=== PATIENT | male | born 2000 | race Caucasian/White ===

== ENCOUNTER 2024-07-26 10:33 | Outpatient (AMB) | payer OTHER, SELFPAY ==
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
[2024-07-26 10:39] VITALS: BP 100/60; PULSE 57; TEMP 36.6; O2SAT 97; BMI 19.9
--- OUTSIDE RECORDS SUMMARY | 2024-07-26 12:26 | XMS_ITS | Clinical Summary ---
Author Organization [facility] [employer] [facility] lin Address [address] [place] [address] Care Team Providers Care Magistrate Name Role Phone No, Pcp TOOL PROCUREMENT COORDINATOR Primary Care Provider Unavailabl e Allergies No known active allergies Medications VYVANSE 40 mg capsule 0 10/06/2014 Active QUEtiapine (SEROquel) 100 MG tablet 0 10/06/2014 Active sertraline (ZOLOFT) 50 MG tablet 0 11/03/2014 Active divalproex (DEPAKOTE) 250 MG EC tablet 0 09/08/2014 Active Social History Tobacco Use Types Packs/Day Years Used Date Smoking Tobacco: Passive Smo ke Exposure - Never Smoker Sex and Gender Information Value Date Recorded Sex Assigned at Not on file Legal Sex Male 3:32 PM EDT Gender Identity Not on file Sexual Orientation Not on file Last Filed Vital Signs Vital Sign Reading Time Taken Comments Blood Pressure 108/62 11/08/2014 3:44 PM EDT Pulse 77 11/08/2014 3:44 PM EDT Temperature 37.1 ??C (98.8 ??F) 11/08/2014 3:44 PM ED T Respiratory Rate 14 11/08/2014 3:44 PM EDT Oxygen Saturation 97% 11/08/2014 3:44 PM EDT Inhaled Oxygen Concentration - - Weight 38.9 kg (85 lb 12.8 oz) 11/08/2014 3:44 P M EDT Height 149.9 cm (4' 11 ) 11/08/2014 3:44 PM EDT Body Mass Index 17.33 11/08/2014 3:44 PM EDT Plan of Treatment Health Maintenance Due Date Last Done Comments Depression: Screening Annual ly using PHQ-2/9 in Adults 18 yrs or above (or HM Modifier)([facility]) 02/08/2018 Hepatitis C Virus Infection in Adolescents and Adults: Screening (or Modifier) ([facility]) 02/08/2018 SDOH Screening Reminder: Karie eden for all adults ([facility]) 02/08/2018 Tobacco Smoking Cessation: i n Adults excluding Women: Behavioral and Pharmacotherapy Interventions ([facility]) 02/08/2018 DTaP/Tdap/Td Vaccines ([facility]) (1 - Tdap) 02/08/2019 Lipid Screening: Once for Me n aged 20 to 35 yrs ([facility]) 2020 Flu Vaccination: Yearly for ages 18mos through 64 years (or Modifier)([facility]) 11/20/2023 COVID-19 Vaccine Screening: Initial Series and Booster Status ([facility]) ( - 2023- season) 2023 Zoster/Shingles Vaccine Seri es Screening: Adults aged 18+ yrs (or HM Modifiers)([facility]) (1 of 2) 02/08/2050 Pneumococcal Vaccination Scr eening: Pts 0-19 & 19-49 yrs of age ([facility]) Aged Out No longer eligible based on patient's age to complete this topic Medical Devices Not on file Care Teams Magistrate Relationship Specialty Start Date End Date No, Pcp, TOOL PROCUREMENT COORDINATOR N/A Do not use PCP - General 11/08/14
--- OUTSIDE RECORDS SUMMARY | 2024-07-26 12:26 | XMS_ITS | Continuity of Care Document ---
Author Organization [facility] Address [address] [place] [address] Phone Care Team Providers Care Boiler Riveter Name Role Phone No Information Unavailable Unavailable Advance Directives Directive Yes / No Effective Date File Name No Information Encounters Encounter Description Practice Location Reason(s) For Visit Diagnoses Date Provider Providers Copied on Encounter [facility], [address], [place], [place], [id number], [place] tel:[phone] No Information No Information Family History Family Member Type Diagnosis Age At Onset No Information Payers Payer name Insurance type Covered alliance party ID Authoriza tion(s) No Information Social History Type Description Quantity Date Captured Comments Sex Male Smoking Status No Information Chief Complaint And Reason For Visit No Information Reason For Referral Reason For Referral No Information History Of Present Illness Encounter Date Complaint History Of Prese nt Illness No Information Functional Status Date Functional Assessmen t No Information Instructions Date Instruction Additional Infor mation No Information Assessments Type Assessment Date No Information Patient Care Teams Name Effective Dates (start - stop) Status Members No Information
== END 2024-07-26 11:31 | disposition home or self-care (01) ==
LOC: HO.HMCH 10:33
DX: F90.9 Attention-deficit hyperactivity disorder, unspecified type (principal); R09.81 Nasal congestion; M54.41 Lumbago with sciatica, right side; H66.90 Otitis media, unspecified, unspecified ear

== ENCOUNTER → 2024-07-26 10:33 | Outpatient (BNVA) | payer OTHER, SELFPAY | DX: F90.9 Attention-deficit hyperactivity disorder, unspecified type (principal); R09.81 Nasal congestion; M54.41 Lumbago with sciatica, right side; H66.91 Otitis media, unspecified, right ear | CPT/HCPCS: 96127 ==

== ENCOUNTER 2024-07-30 08:42 | Outpatient (REF) | payer OTHER, SELFPAY ==
--- OUTSIDE RECORDS SUMMARY | 2024-07-30 10:14 | XMS_ITS | Clinical Summary ---
Author Organization [facility] [employer] & [facility] lin Address [address] [place] [address] Care Team Providers Care Floors Buffer Name Role Phone No, Pcp COLD PRESS LOADER Primary Care Provider Unavailabl e Allergies No [...] Adults 18 yrs or above (or HM Modifier)([facility]) 02/08/2018 Hepatitis C Virus Infection in Adolescents and Adults: Screening (or Modifier) ([facility]) 02/08/2018 SDOH Screening Reminder: Karie eden for all adults ([facility]) 02/08/2018 Tobacco Smoking Cessation: i n Adults excluding Women: Behavioral and Pharmacotherapy Interventions ([facility]) 02/08/2018 DTaP/Tdap/Td Vaccines ([facility]) (1 - Tdap) 02/08/2019 Lipid Screening: Once for Me n aged 20 to 35 yrs ([facility]) 2020 Flu Vaccination: Yearly for ages 18mos through 64 years (or Modifier)([facility]) 11/20/2023 COVID-19 Vaccine Screening: Initial Series and Booster Status ([facility]) ( - 2023- season) 2023 Zoster/Shingles Vaccine Seri es Screening: Adults aged 18+ yrs (or HM Modifiers)([facility]) (1 of 2) 02/08/2050 Pneumococcal Vaccination Scr eening: Pts 0-19 & 19-49 yrs of age ([facility]) Aged Out No longer eligible based on patient's age to complete this topic Medical Devices Not on file Care Teams Floors Buffer Relationship Specialty Start Date End Date No, Pcp, COLD PRESS LOADER N/A Do not use PCP - General 11/08/14
[2024-07-30 10:20] LABS: MANUAL DIFF FLAG NO
[2024-07-30 10:44] LABS: Basophils Absolute Auto 0.1 X10*3/uL (0.0-0.2); Basophils Percent Auto 1.1 % (0-2); Eosinophils Absolute Auto 0.2 X10*3/uL (0.0-0.4); Eosinophils Percent Auto 4.2 % (0-4); Hemoglobin 14.8 g/dl (14.0-18.0); Imm Gran Abs Auto 0.02 X10*3/uL (0.00-0.03); Imm Gran Pct Auto 0.4 % (0.0-0.4); Lymphocytes Absolute Auto 1.9 X10*3/uL (1.2-4.9); Lymphocytes Percent Auto 36.4 % (20-40); Mean Corpuscular HGB Conc 35.2 g/dl (31.0-36.0); Mean Corpuscular Hemoglobin 30.8 pg (27.0-33.0); Mean Corpuscular Volume 87.5 fL (80.0-98.0); Monocytes Absolute Auto 0.5 X10*3/uL (0.1-1.2); Monocytes Percent Auto 9.5 % (2-11); Neutrophils Absolute Auto 2.5 x10*3/uL (2.0-8.3); Neutrophils Percent Auto 48.4 % (45-73); Platelet Count 302 X10*3/uL (160-400); White Blood Count 5.3 X10*3/uL (4.8-10.8)
[2024-07-30 11:13] LABS: Appearance Urine Clear; Color Urine Yellow; Glucose Urine UA Negative (Negative); Leukocyte Esterase Urine Negative (Negative); Nitrite Urine Negative (Negative); PH 5.5 (5.0-9.0); Specific Gravity - Urine 1.025 (1.005-1.025); Urine Blood Negative (Negative); Urine Ketones Negative (Negative); Urine Protein Negative (Neg-Trace)
[2024-07-30 11:22] LABS: Alanine Aminotransferase 17 U/L (0-40); Albumin Level 4.8 g/dL (3.5-5.0); Alkaline Phosphatase 33 U/L (39-117); Anion Gap 12 (12-20); Aspartate Amino Transferase 23 U/L (5-37); Blood Urea Nitrogen 16 mg/dL (9-16); Calcium 10.1 mg/dL (8.4-10.2); Carbon Dioxide 28 mmol/L (22-29); Chloride 106 mmol/L (96-108); Cholesterol 185 mg/dL (<200); Estimated Glomerular Filt Rate > 60; Glucose Fasting 92 mg/dL (60-99); HDL Cholesterol 84 mg/dL (>40); LDL Cholesterol Calculated 93 mg/dL (<100); Potassium 4.6 mmol/L (3.3-5.1); Sodium 141 mmol/L (135-145); Total Protein 7.5 g/dL (6.5-8.0); Triglycerides 40 mg/dL (<150)
[2024-07-30 11:44] LABS: TSH reflex Free T4 1.03 uIU/mL (0.32-4.0); Vitamin D 25-OH Total 19.8 ng/mL (>30)
== END 2024-07-30 08:43 | disposition home or self-care (01) ==
LOC: HO.LAB 08:42
DX: Z00.00 Encounter for general adult medical examination without abnormal findings (principal)
CPT/HCPCS: 36415; 80053; 80061; 81003; 82306; 84443; 85025

== ENCOUNTER 2024-07-30 08:42 | Outpatient (AMB) | payer OTHER, SELFPAY ==
--- OUTSIDE RECORDS SUMMARY | 2024-07-30 08:50 | XMS_ITS | Clinical Summary ---
Author Organization [facility] [place] [facility] lin Address [address] [place] [address] Care Team Providers Care Furniture Mechanic Name Role Phone No, Pcp DIGITAL ADVERTISING ANALYST Primary Care Provider Unavailabl e Allergies No [...] Adults 18 yrs or above (or HM Modifier)([facility]) 02/08/2018 Hepatitis C Virus Infection in Adolescents and Adults: Screening (or Modifier) ([facility]) 02/08/2018 SDOH Screening Reminder: Karie eden for all adults ([facility]) 02/08/2018 Tobacco Smoking Cessation: i n Adults excluding Women: Behavioral and Pharmacotherapy Interventions ([facility]) 02/08/2018 DTaP/Tdap/Td Vaccines ([facility]) (1 - Tdap) 02/08/2019 Lipid Screening: Once for Me n aged 20 to 35 yrs ([facility]) 2020 Flu Vaccination: Yearly for ages 18mos through 64 years (or Modifier)([facility]) 11/20/2023 COVID-19 Vaccine Screening: Initial Series and Booster Status ([facility]) ( - 2023- season) 2023 Zoster/Shingles Vaccine Seri es Screening: Adults aged 18+ yrs (or HM Modifiers)([facility]) (1 of 2) 02/08/2050 Pneumococcal Vaccination Scr eening: Pts 0-19 & 19-49 yrs of age ([facility]) Aged Out No longer eligible based on patient's age to complete this topic Medical Devices Not on file Care Teams Furniture Mechanic Relationship Specialty Start Date End Date No, Pcp, DIGITAL ADVERTISING ANALYST N/A Do not use PCP - General 11/08/14
--- OUTSIDE RECORDS SUMMARY | 2024-07-30 08:50 | XMS_ITS | Continuity of Care Document ---
Author Organization [facility] Address [address] [place] [address] Phone Care Team Providers Care Testing Specialist Name Role Phone No Information Unavailable Unavailable Advance Directives Directive Yes / No Effective Date File Name No Information Encounters Encounter Description Practice Location Reason(s) For Visit Diagnoses Date Provider Providers Copied on Encounter Medical [facility], [address], [place], [place], [id number], [place] tel:[phone] No Information No Information Family History Family Member Type Diagnosis Age At Onset No Information Payers Payer name Insurance type Covered libertarian ID Authoriza tion(s) No Information Social History [...]
[2024-07-30 08:52] VITALS: BP 114/74; PULSE 72; RESP 16; TEMP 36.5; O2SAT 99; BMI 20.1
--- NOTE | 2024-07-30 08:52 | MHC.PC.OV ---
Vital Signs 07/30/24 08:52 Height 5 ft 11 in Weight 143 lb 12.8 oz BMI 20.1 BP 114/74 Blood Pressure Location Lt brachial Position Sitting Respiration 16 Pulse 72 Pulse Source Pulse Oximeter Temp 97.7 F Temp Source Oral Pulse Oximetry (%) 99 Oxygen Delivery Method Room Air Intake Visit Reasons: Jaw Concern Market Research Consultant Required: No Accompanied by: Self / Same As Patient Allergies No Known Allergies Allergy (Verified 07/30/24 09:17) Medication List - Last Reconciled 07/30/24 by MARCO A Shipley amoxicillin-pot clavulanate 875-125 mg 1 tab PO BID 10 days fluticasone propionate 50 mcg/actuation 2 sprays intranasal BID 14 days Tobacco use date assessed: 07/30/24 Dental Screening Dental Screen Date: 07/30/24 Did you have a dental visit in the last 12 months?: Yes Did you have a dental problem in the last 6 months where you did not have access to dental care?: No Was dental information given to patient?: Patient has dentist HPI Jaw Concern HPI Details The patient is a 24-year-old male presenting with concerns of a sensation of feeling like his right jaw is shrinking Patient reports that he had dental work done recently, as he had an infected wisdom tooth that had to be taken out on the right side Patient reports that he feels like the muscle in his cheek on the right side is weaker than the left Reports that he would like to get this taken care of. The patient reports that he has a follow up appt with his dentist on Friday Reports that he feels like he has to chew his food on the left side. He denies any difficulty swallowing or jaw pain. He reports clicking on the right side of the jaw. REPLACED BY [facility] Medical History (Updated 07/30/24 @ 10:47 by MARCO A Shipley) ADHD Surgical History History of wisdom tooth extraction Family History Other Diverticulosis Mental health disorder Substance use disorder Social History Housing: House Alcohol intake: never Patient Tobacco Use Status: Never used Tobacco e-Cigarette/Vaping Use: Never Used Second Hand Smoke Exposure: No Substance Use Type: Marijuana service: No Current occupational status: employed Current occupation: [employer] Cognitive needs: No Hearing needs: No Vision needs: No Questionnaire Thrive Questionnaire Date Thrive assessed: 07/30/24 I am a: Patient What is your living situation today?: I have a steady place to live Within the past 12 months, did the food you bought not last and you didn't have the money to get more?: Often true Within the past 12 months, did you worry whether your food would run out before you got money to buy more?: Often true Do you have trouble paying for medicines?: Yes Do you have trouble getting transportation to medical appointments?: No Do you have trouble paying your heating and electricity bill?: No Do you have trouble taking care of your child, family member or friend?: No Do you have trouble with day-to-day activities such as bathing, preparing meals, shopping, managing finances, etc.?: Yes Are you currently unemployed and looking for a job?: No Are you interested in more education?: No Please select the resources that you would like help with: Food Currently or been in a relationship where the following occur: No concerns reported THRIVE Score: 2 AUDIT C Alcohol Use Questionnaire (AUDIT-C) 1. How often do you have a drink containing alcohol?: Never 3. How often do you have six or more drinks on one occasion?: Never Total Score: 0 Score Reviewed/Action Taken: No NATA-7 AMB Questionnaire NATA-7 Date NATA - 7 assessed: 07/26/24 Source: Developed by Drs. Gilberto Tate, Malena Bryson, Nelson Mayes and colleagues, with an educational aleida from [employer]. Review of Systems Const Denies headache(s) and Reports weakness (Reports that the right side of his jaw is weaker than left and is shrinking) Eyes Denies loss of vision ENT Reports Normal hearing present, Denies vertigo, Denies dizziness, Denies otalgia, Denies facial pain, Denies headache(s), Denies sore throat and Reports other (Reports feeling like his right jaw is shrinking) Card Denies chest pain, Denies leg edema and Denies lightheadedness Resp Denies cough and Denies hemoptysis Neuro Reports Normal hearing present, Denies Abnormal speech present, Denies vertigo, Denies dizziness, Denies headache(s), Denies loss of vision, Reports weakness (Reports that the right side of his jaw is weaker than left and is shrinking) and Reports other (feels like he has decreased sensation to the right side of his jawline) Physical exam (Primary Care) Vital Signs: Last Vital Signs Temp 97.7 F 07/30/24 08:52 Pulse 72 07/30/24 08:52 Resp 16 07/30/24 08:52 BP 114/74 07/30/24 08:52 Pulse Ox 99 07/30/24 08:52 Oxygen Delivery Method Room Air 07/30/24 08:52 BMI result Body Mass Index 20.1 Tobacco/Smoking Status: Tobacco use Status Tobacco use date assessed 07/30/24 07/30/24 08:59 Patient Tobacco Use Status Never used Tobacco 07/30/24 08:59 e-Cigarette/Vaping Use Never Used 07/30/24 08:59 Thrive Assessment: Date of Thrive Assessment Date Thrive assessed 07/30/24 07/30/24 08:59 Currently or been in a relationship where the following occur: No concerns reported Const General: healthy appearing, no acute distress, alert and awake Nutritional Appearance: well nourished Orientation/consciousness: oriented to person, oriented to place and oriented to time HENMT Ears: TM's normal bilaterally General nose exam: Normal nasal mucous membranes and turbinates present Throat: Yes posterior oropharynx normal Eyes Conjunctivae: conjunctivae normal Sclerae: sclerae normal Pupils: Equal, round and reactive pupils present Neck Neck: Yes no lymphadenopathy, Yes no meningeal signs and Yes no JVD Thyroid: Thyroid normal Carotids: no bruits Resp Effort & Inspection: normal respiratory effort and not tachypneic Auscultation: no crackles, no rales, no rhonchi and no wheezes Cardio Rate: regular rate Rhythm: regular rhythm Heart sounds: no murmurs and normal S1 and S2 Skin General skin exam: no rashes or lesions noted and dry skin Neuro General: oriented to person, oriented to place, oriented to time, moves all extremities, no meningeal signs, no focal motor deficits and CN's II-XI intact bilaterally Cranial nerves: Yes Equal, round and reactive pupils present, Yes Normal facial strength present, Yes Midline tongue present, Yes Symmetric palate elevation present and Yes Normal hearing present Speech: No Abnormal speech present Gait exam (Neuro): Normal gait present Motor exam (neuro): 5/5 motor strength present throughout and no tremor noted Extrem Right upper extremity: full ROM Left upper extremity: full ROM Right lower extremity: full ROM; no edema Left lower extremity: full ROM; no edema Psych Mental Status: mental status grossly normal Speech and movement: Normal speech and movement present Affect: normal affect Attitude: cooperative Thought process: Normal thought process present Coding Level of Care Code Est Pt Level 2 (48145) Diagnoses 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 Reports that he has to choose food on his left side. Reports that he feels decreased sensation and like his jaw is thinning on the right side. No focal deficit or weakness noticed. Clicking in the jaw heard with biting down. We will discuss with the patient that his complaints seems to be a dental issue and he should follow up with his dentist. The patient reports that he has a follow up appointment on Friday. The patient had bulging in his right ear down his previous visit and was started on antibiotics which appears much better on this visit.
== END 2024-07-30 09:29 | disposition home or self-care (01) ==
LOC: HO.HMCH 08:43
DX: K08.2 Atrophy of edentulous alveolar ridge (principal)

== ENCOUNTER 2024-09-06 10:59 | Outpatient (AMB) | payer OTHER, SELFPAY ==
[2024-09-06 11:03] VITALS: BP 114/76; PULSE 68; TEMP 36.3; O2SAT 98; BMI 20.2
--- NOTE | 2024-09-06 11:03 | MHC.PC.OV ---
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 Required: No Accompanied by: Self / Same As Patient Allergies No Known Allergies Allergy (Verified 09/06/24 11:14) Tobacco use date assessed: 07/30/24 Dental Screening Dental Screen Date: 07/30/24 HPI annual physical HPI Details Dentist:up to date Eye: up to date 08/16/24 Snellen: Right: Left: Corrected vision: no STI screening: Colonoscopy: Pap Smer: PHQ-9: Flu:not usually COVID:no Tdap: given today in office Diet: poor appetite, some days, the only eat breakfast, other days he tries to eat 3 meals a day Exercise: He is doing physical therapy, but no regular exercising, which is supposed to end the 21 of October Dental appt this Friday [facility] 12/13, with complex migraine, and was experiencing darkness around his eye ER referred to him to the urologist, they were not in network, so he needs to be referred Jaw pain continues-He is being evaluated on next Friday vitamin 3 1000 iu otc daily [facility] Medical History (Updated 09/06/24 @ 12:06 by MARCO A Shipley) ADHD Surgical History History of wisdom tooth extraction Family History Other Diverticulosis Mental health disorder Substance use disorder Social History Housing: House Alcohol intake: never Patient Tobacco Use Status: Never used Tobacco e-Cigarette/Vaping Use: Never Used Second Hand Smoke Exposure: No Substance Use Type: Marijuana service: No Current occupational status: employed Current occupation: [employer] Cognitive needs: No Hearing needs: No Vision needs: No Questionnaire Thrive Questionnaire Date Thrive assessed: 07/30/24 I am a: Patient What is your living situation today?: I have a steady place to live Within the past 12 months, did the food you bought not last and you didn't have the money to get more?: Often true Within the past 12 months, did you worry whether your food would run out before you got money to buy more?: Often true Do you have trouble paying for medicines?: Yes Do you have trouble getting transportation to medical appointments?: No Do you have trouble paying your heating and electricity bill?: No Do you have trouble taking care of your child, family member or friend?: No Do you have trouble with day-to-day activities such as bathing, preparing meals, shopping, managing finances, etc.?: Yes Are you currently unemployed and looking for a job?: No Are you interested in more education?: No Please select the resources that you would like help with: Food Currently or been in a relationship where the following occur: No concerns reported THRIVE Score: 2 NATA-7 AMB Questionnaire NATA-7 Date NATA - 7 assessed: 07/26/24 Source: Developed by Drs. Gilberto Tate, Malena Bryson, Nelson Mayes and colleagues, with an educational aleida from [employer]. Physical exam (Primary Care) Vital Signs: Last Vital Signs Temp 97.3 F 09/06/24 11:03 Pulse 68 09/06/24 11:03 BP 114/76 09/06/24 11:03 Pulse Ox 98 09/06/24 11:03 Oxygen Delivery Method Room Air 09/06/24 11:03 BMI result Body Mass Index 20.2 Tobacco/Smoking Status: Tobacco use Status Tobacco use date assessed 07/30/24 09/06/24 11:03 Patient Tobacco Use Status Never used Tobacco 09/06/24 11:03 e-Cigarette/Vaping Use Never Used 09/06/24 11:03 Thrive Assessment: Date of Thrive Assessment Date Thrive assessed 07/30/24 09/06/24 11:03 Currently or been in a relationship where the following occur: No concerns reported Immunizations tetanus-diphtheria toxoids-Td 2 Lf unit-2 Lf unit/0.5 mL IM suspension Performing Provider: MARCO A Shipley Per[facility] Administered by: ARSLAN Bryant on 09/06/24 12:10 Dose Route Admin Location Dispensed Lot Number Expiration Date NDC Wind Energy Technician 0.5 mL IM Left Deltoid 0.5 mL [id number] 06/19/26 [id number] [employer] VIS Given Date VIS Provided VIS Publication Date 09/06/24 Single Vaccine 20 Eligibility Eligibility Date Funding Source Not VFC Eligible 09/06/24 Private Results Reviewed Results Reviewed: Laboratory Tests 07/30/24 07/30/24 10:16 10:20 WBC 5.3 RBC 4.80 Hgb 14.8 Hct 42.0 MCV 87.5 MCH 30.8 MCHC 35.2 RDW 13.0 Plt Count 302 Sodium 141 Potassium 4.6 Chloride 106 Carbon Dioxide 28 Anion Gap 12 BUN 16 Creatinine 0.81 Estimated GFR > 60 Fasting Glucose 92 Calcium 10.1 Total Bilirubin 1.0 AST 23 ALT 17 Alkaline Phosphatase 33 L Total Protein 7.5 Albumin 4.8 Triglycerides 40 Cholesterol 185 LDL Cholesterol, Calc 93 25-OH Vitamin D Total 19.8 L TSH 1.03 Urine Color Yellow Urine Appearance Clear Urine pH 5.5 Ur Specific [place] 1.025 Urine Protein Negative Urine Glucose (UA) Negative Urine Ketones Negative Urine Blood Negative Urine Nitrite Negative Ur Leukocyte Esterase Negative Coding Assessment & Plan Assessment & Plan Orders: Orders Complete Blood Count Auto Diff 1 Year . - Attention-deficit hyperactivity disorder, unspecified type, Z00.00 - Encounter for general adult medical examination without abnormal findings Lipid Panel 1 Year . - Attention-deficit hyperactivity disorder, unspecified type, Z00.00 - Encounter for general adult medical examination without abnormal findings Glucose Fasting 1 Year . - Attention-deficit hyperactivity disorder, unspecified type, Z00.00 - Encounter for general adult medical examination without abnormal findings Comprehensive [place]. Panel Fast 1 Year . - Attention-deficit hyperactivity disorder, unspecified type, Z00.00 - Encounter for general adult medical examination without abnormal findings TSH reflex Free T4 1 Year . - Attention-deficit hyperactivity disorder, unspecified type, Z00.00 - Encounter for general adult medical examination without abnormal findings UA CC w/rflx Micro + Cult 1 Year . - Attention-deficit hyperactivity disorder, unspecified type, Z00.00 - Encounter for general adult medical examination without abnormal findings Vitamin D 25-OH Total 1 Year . - Attention-deficit hyperactivity disorder, unspecified type, Z00.00 - Encounter for general adult medical examination without abnormal findings Td State Immunization Today Z23 - Encounter for immunization
--- OUTSIDE RECORDS SUMMARY | 2024-09-06 11:46 | XMS_ITS | Clinical Summary ---
Author Organization [facility] [employer] & [facility] lin Address [address] [place] [address] Care Team Providers Care Can Filler Name Role Phone No, Pcp SOCIAL WORK NURSE Primary Care Provider Unavailabl e Allergies No [...] Adults 18 yrs or above (or HM Modifier)([facility]) 02/08/2018 Hepatitis C Virus Infection in Adolescents and Adults: Screening (or Modifier) ([facility]) 02/08/2018 SDOH Screening Reminder: Karie eden for all adults ([facility]) 02/08/2018 Tobacco Smoking Cessation: i n Adults excluding Women: Behavioral and Pharmacotherapy Interventions ([facility]) 02/08/2018 DTaP/Tdap/Td Vaccines ([facility]) (1 - Tdap) 02/08/2019 Lipid Screening: Once for Me n aged 20 to 35 yrs ([facility]) 2020 COVID-19 Vaccine Screening: Initial Series and Booster Status ([facility]) ( - 2023- season) 2023 Flu Vaccination: Yearly for ages 18mos through 64 years (or Modifier)([facility]) 11/19/2024 Zoster/Shingles Vaccine Seri es Screening: Adults aged 18+ yrs (or HM Modifiers)([facility]) (1 of 2) 02/08/2050 Pneumococcal Vaccination Scr eening: Pts 0-19 & 19-49 yrs of age ([facility]) Aged Out No longer eligible based on patient's age to complete this topic Medical Devices Not on file Care Teams Can Filler Relationship Specialty Start Date End Date No, Pcp, SOCIAL WORK NURSE N/A Do not use PCP - General 11/08/14
--- OUTSIDE RECORDS SUMMARY | 2024-09-06 11:46 | XMS_ITS | Continuity of Care Document ---
Author Organization [facility] Address [address] [place] [address] Phone Care Team Providers Care Sand Caster Name Role Phone No Information Unavailable Unavailable Advance Directives Directive Yes / No Effective Date File Name No Information Encounters Encounter Description Practice Location Reason(s) For Visit Diagnoses Date Provider Providers Copied on Encounter Medical [facility], [address], [place], [place], [id number], [place] tel:[phone] No Information No Information Family History Family Member Type Diagnosis Age At Onset No Information Payers Payer name Insurance type Covered republican ID Authoriza tion(s) No Information Social History [...]
--- OUTSIDE RECORDS SUMMARY | 2024-09-06 11:46 | XMS_ITS | Referral Summary ---
Author Organization [facility] Address [address] [place] [address] Care Team Providers Care Compensation And Hris Analyst Name Role Phone Luis Ryan Primary Care Provider [phone] Encounters Date Type Department Care Team Description 08/28/2024 2:52 PM EDT - 08/28/2024 5:33 PM EDT Emergency [facility] [address] [place] [address] Pernell Amaro MD Migraine with aura and without status migrainosus, not intractable (Primary Dx) Discharge Disposition: Home or Self Care (01) from Last 3 Months Allergies No known active allergies Medications No known medications Active Problems Problem Noted Date Diagnosed Date Anxiety 12/09/2014 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 Short stature 11/29/2014 ADHD (attention deficit hyperactivity disorder) 11/29/2014 Bipolar I disorder, most recent episode depresse d 09/08/2014 Immunizations Immunization Administration Dates Next Due Diphtheria, Tetanus Toxoids and Acellular Pertussis Vaccine, 5 Pertussis Antigens 11/06/2004,06/04/2001,2000,07/22,2000 Haemophilus Influenzae Type B Vaccine, PRP-OMP Conjugate 02/04/2001,2000,2000,04/08 Hepatitis A Vaccine, Pediatric/Adolescent Dosage, 2 Dose Schedule 07/16/2005,11/06/2004 Hepatitis B Vaccine, Pediatr ic or Pediatric/Adolescent Dosage 2000,2000,2000 Measles, Mumps, and Rubella Vaccine 11/06/2004,0 06/04/2001 Meningococcal Polysaccharide (Groups A, C, Y and W-135) Diphtheria Toxoid Conjugate Vaccine (MCV4P) 11/16/2012 Pneumococcal Polysaccharide Vaccine, 23 Valent 06/04/2001,02/04/2001,2000 Poliovirus Vaccine, Inactivated 11/07/19 05,02/04/2001,2000,04/08 Tetanus Toxoid, Reduced Diph theria Toxoid, and Acellular Pertussis Vaccine, Adsorbed 11/16/2012 Varicella Virus Vaccine 11/16/2012,02/18/2002 Social History Tobacco Use Types Packs/Day Years Used Date Smoking Tobacco: Never Comments:: Alcohol Use Standard Drinks/Week Comments Not Currently 0 (1 standard drink = 0.6 oz pur e alcohol) Sex and Gender Information Value Date Recorded Sex Assigned at Male 08/28/2024 2:35 PM EDT Legal Sex Male 6:43 PM EDT Gender Identity Male 08/28/2024 2:35 PM EDT Sexual Orientation Not on file Last Filed Vital Signs Vital Sign Reading Time Taken Comments Blood Pressure 144/90 08/28/2024 2:42 PM EDT Pulse 62 08/28/2024 2:42 PM EDT Temperature 36.8 ??C (98.2 ??F) 08/28/2024 2:42 PM ED T Respiratory Rate 18 08/28/2024 2:42 PM EDT Oxygen Saturation 98% 08/28/2024 2:42 PM EDT Inhaled Oxygen Concentration - - Weight 63.5 kg (140 lb) 08/28/2024 2:42 PM EDT Height 182.9 cm (6') 08/28/2024 2:42 PM EDT Body Mass Index 18.99 08/28/2024 2:42 PM EDT Plan of Treatment Not on file Procedures * Due to [place] [employer] law, this organization might not be sharing negative HIV tests. Procedure Name Priority Date/Time Associated Diagnosis Comments COMPREHENSIVE METABOLIC PANEL STAT 08/28/2024 4:11 PM EDT CBC AUTO DIFFERENTIAL STAT 08/28/2024 4:[address] HEAD WO CONTRAST STAT 08/28/2024 3 :55 PM EDT from Last 3 Months Results * Due to [place] [employer] law, this organization might not be sharing negative HIV tests. * (ABNORMAL) CBC Auto Differential (08/28/2024 4:11 PM EDT) WBC 7.5 4.8 - 10.8 10*3/uL 08/28/2024 4:18 PM EDT [facility] RBC 4.55(L) 4.70 - 6.10 10*6/uL 08/28/2024 4:18 PM EDT [facility] Hemoglobin 13.6(L) 13.7 - 16.5 g/dL 08/28/2024 4:18 PM EDT [facility] Hematocrit 39.2(L) 40.5 - 48.5 % 08/28/2024 4:18 PM EDT [facility] MCV 86.2 80.0 - 94.0 fL 08/28/2024 4:18 PM EDT [facility] MCH 29.9 26.0 - 34.0 pg 08/28/2024 4:18 PM EDT [facility] MCHC 34.7 31.0 - 36.0 g/dL 08/28/2024 4:18 PM EDT [facility] RDW 12.3 12.0 - 15.0 % 08/28/2024 4:18 PM EDT [facility] RDW Standard Deviation 38.9 35.1 - 43.9 fL 08/28/2024 4:18 PM EDT [facility] Platelets 285 140 - 440 10*3/uL 08/28/2024 4:18 PM EDT [facility] MPV 8.8(L) 9.4 - 12.4 fL 08/28/2024 4:18 PM EDT [facility] Neutrophil % 56.9 50.0 - 75.0 % 08/28/2024 4:18 PM EDT [facility] Immature Grans % 0.1 0.0 - 0.9 % 08/28/2024 4:18 PM EDT [facility] Lymphocyte % 31.1 20.0 - 44.0 % 08/28/2024 4:18 PM EDT [facility] Monocyte % 7.6 0.0 - 14.0 % 08/28/2024 4:18 PM EDT [facility] Eosinophil % 3.5 0.0 - 5.0 % 08/28/2024 4:18 PM EDT [facility] Basophil % 0.8 0.0 - 2.0 % 08/28/2024 4:18 PM EDT [facility] Neutrophil # 4.26 1.80 - 7.70 10*3/uL 08/28/2024 4:18 PM EDT [facility] Immature Grans # <0.03 0.00 - 0.03 10*3/uL 08/28/2024 4:18 PM EDT [facility] Lymphocyte # 2.30 1.00 - 4.75 10*3/uL 08/28/2024 4:18 PM EDT [facility] Monocyte # 0.60 0.00 - 0.60 10*3/uL 08/28/2024 4:18 PM EDT [facility] Eosinophil # 0.30 0.00 - 0.80 10*3/uL 08/28/2024 4:18 PM EDT [facility] Basophil # 0.10 0.00 - 0.20 10*3/uL 08/28/2024 4:18 PM EDT [facility] nRBC % 0.0 0 - 0 /100 WBCs 08/28/2024 4:18 PM EDT [facility] nRBC # <0.01 0.00 - 0.13 10*3/uL 08/28/2024 4:18 PM EDT [facility] Blood Structure of peripheral vein / Unknown Venipuncture / Unknown 08/28/2024 4:11 PM EDT 08/28/2024 4:16 PM EDT us [facility] BLOOD ORDERABLES Final Result [facility] [address] [place] [id number], * Comprehensive Metabolic Panel (08/28/2024 4:11 PM EDT) NA 138 136 - 145 mmol/L 08/28/2024 4:39 PM EDT [facility] K 3.9 3.5 - 5.1 mmol/L 08/28/2024 4:39 PM EDT [facility] Cl 103 98 - 109 mmol/L 08/28/2024 4:39 PM EDT [facility] CO2 24 22 - 32 mmol/L 08/28/2024 4:39 PM EDT [facility] Anion Gap 15 >=0 08/28/2024 4:39 PM EDT [facility] Glucose 94 60 - 99 mg/dL 08/28/2024 4:39 PM EDT [facility] Creatinine 0.92 0.50 - 1.12 mg/dL 08/28/2024 4:39 PM EDT [facility] Calcium 9.8 8.4 - 10.4 mg/dL 08/28/2024 4:39 PM EDT [facility] Total Protein 7.2 6.6 - 8.7 g/dL 08/28/2024 4:39 PM EDT [facility] Albumin 4.8 3.5 - 5.0 g/dL 08/28/2024 4:39 PM EDT [facility] Bilirubin, Total 0.5 0.2 - 1.2 mg/dL 08/28/2024 4:39 PM EDT [facility] Alkaline Phosphatase 40 40 - 129 U/L 08/28/2024 4:39 PM EDT [facility] AST 21 0 - 40 U/L 08/28/2024 4:39 PM EDT [facility] ALT 15 <=41 U/L 08/28/2024 4:39 PM EDT [facility] BUN 16 6 - 20 mg/dL 08/28/2024 4:39 PM EDT [facility] eGFR >90 >=60 mL/min/1. 73m2 08/28/2024 4:39 PM EDT [facility] Comment:The estimated glomer ular filtration rate (eGFR) is calculated using a new formula developed by the NKF-ASN task force to eliminate race-based correction factors. The new formula uses serum/plasma creatinine, age, and gender to determine eGFR. A value below 60mls/min might indicate kidney disease and will be flagged. For additional information, see Hoa et al, Am J Kidney Dis. 2021;79(2):268- 288, A Unifying Approach for GFR estimation: Recommendations of the NKF-ASN Task Force on Reassessing the Inclusion of Race in Diagnosing Kidney Disease . Globulin, Total 2.4 2.1 - 4.2 g/dL 08/28/2024 4:39 PM EDT [facility] A/G Ratio 2.0 1.5 - 3.0 08/28/2024 4:39 PM EDT [facility] Blood Structure of peripheral vein / Unknown Venipuncture / Unknown 08/28/2024 4:11 PM EDT 08/28/2024 4:16 PM EDT [facility] BLOOD ORDERABLES Final Result [facility] [address] [place] [address] [address] [place] [address], * CT Head WO Contrast (08/28/2024 3:55 PM EDT) Anatomical Region Laterality Modality Head and Neck Computed Tomogra phy 08/28/2024 4:27 PM EDT Impressions 08/28/2024 4:33 PM EDT No evidence of an acute intracranial hemorrhage, mass effect or large territorial infarct. If symptoms persist or worsen consider MRI. If this radiology report contains a blank impression section, it is an incomplete radiology report. ??Please contact the interpreting radiologist or applicable radiology division as soon as possible to obtain the completed interpretation. ? Workstation ID: [id number] Up-to-date CT equipment and radiation dose reduction techniques were employed. CTDIvol: 60.1 mGy. DLP: 1070 mGy-cm. Narrative 08/28/2024 4:33 PM EDT 3D volume-rendered reconstructions were performed at the acquisition station. COMPARISON: None FINDINGS: There is no evidence of an acute intracranial hemorrhage, mass effect or large territorial infarct. The ventricular system and extra-axial CSF spaces are age appropriate. There is no hydrocephalus. The posterior fossa structures appear normal in configuration. Intact calvarium. The orbits and globes are grossly unremarkable. There is mild mucosal thickening within the partially imaged paranasal sinuses. Mastoid air cells are essentially clear. Resulting Agency Comment [id number] Procedure Note Yamil Ortega MD - 08/28/2024 3D volume-rendered reconstructions were performed at the acquisitionstation. COMPARISON: None FINDINGS: There is no evidence of an acute intracranial hemorrhage, mass effect orlarge territorial infarct. The ventricular system and extra-axial CSFspaces are age appropriate. There is no hydrocephalus. The posterior fossastructures appear normal in configuration. Intact calvarium. The orbitsand globes are grossly unremarkable. There is mild mucosal thickeningwithin the partially imaged paranasal sinuses. Mastoid air cells areessentially clear. IMPRESSION: No evidence of an acute intracranial hemorrhage, mass effect or largeterritorial infarct. If symptoms persist or worsen consider MRI. If this radiology report contains a blank impression section, it is anincomplete radiology report. Please contact the interpreting radiologistor applicable radiology division as soon as possible to obtain thecompleted interpretation. Workstation ID: [id number] Up-to-date CT equipment and radiation dose reduction techniques wereemployed. CTDIvol: 60.1 mGy. DLP: 1070 mGy-cm. Bry [facility] IMG CT PROCEDURES Final Res ult from Last 3 Months Insurance [facility] Care Teams Compensation And Hris Analyst Relationship Specialty Start Date End Date Luis Ryan PA [address] [place] [id number] PCP - General 08/28/24
--- OUTSIDE RECORDS SUMMARY | 2024-09-06 11:46 | XMS_ITS | Clinical Summary ---
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 Short stature 11/29/2014 ADHD (attention deficit hyperactivity disorder) 11/29/2014 Bipolar I disorder, most recent episode depresse d 09/08/2014 Encounters Date Type Department Care Team Description 08/28/2024 2:52 PM EDT - 08/28/2024 5:33 PM EDT Emergency [facility] Emergency Department [address] [place] [address] Pernell Amaro MD Migraine with aura and without status migrainosus, not intractable (Primary Dx) Discharge Disposition: Home or Self Care (01) from Last 3 Months Immunizations Immunization Administration Dates Next Due Diphtheria, [...] Vaccine, Adsorbed 11/16/2012 Varicella Virus Vaccine 11/16/2012,02/18/2002 Family History Medical History Relation Name Comments Other Father Family history of Anxiety Other Mother Family history of Anxiety Other Other Family history of Anxiety Relation Name Status Comments Father Mother Other Social History Tobacco Use Types Packs/Day Years [...] 08/28/2024 2:42 PM EDT Plan of Treatment Health Maintenance Due Date Last Done Comments HIV Screening 2000 Hepatitis C Screening 2000 HPV Vaccines (3 - Male 3-dose series) 06/18/2017 02/19/2017, 12/18/2016 DTaP,Tdap,and Td Vaccines (7 - Td or Tdap) 11/16/2022 11/16/2012, 11/06/2004, 06/04/2001, Additional history exists COVID-19 Vaccine ( season) 2023 Alcohol/Substance Use Screening 04/21/2024 Depression Screening and Follow-Up 04/21/2024 Social Drivers of Health Annual Screening 04/21/2024 Influenza Vaccine (Season Ended) 2024 12/18/2016 RSV Vaccine (60+ years old and patients) (1 - 1-dose 75+ series) 02/08/2075 Hepatitis B Vaccines Completed 2000, 2000, 2000 Pneumococcal Vaccine: Pediatric (0-5 Years) and At-Risk Patients (6-50 Years) Aged Out 06/04/2001, 06/04/2001, 02/04/2001, Additional history exists No longer eligible based on patient's age to complete this topic Varicella Vaccines Completed 11/16/2012, 02/18/2002 Procedures * Due to [place] [employer] law, this organization might not be sharing negative HIV tests. Procedure Name Priority Date/Time Associated Diagnosis Comments COMPREHENSIVE METABOLIC PANEL STAT 08/28/2024 4:11 PM EDT CBC AUTO DIFFERENTIAL STAT 08/28/2024 4:[address] HEAD WO CONTRAST STAT 08/28/2024 3 :55 PM EDT from Last 3 Months Results * Due to [place] state law, this organization might not be sharing negative HIV tests. * (ABNORMAL) CBC Auto Differential (08/28/2024 4:11 PM EDT) WBC 7.5 4.8 - 10.8 10*3/uL 08/28/2024 4:18 PM EDT [facility] RBC 4.55(L) 4.70 - 6.10 10*6/uL 08/28/2024 4:18 PM EDT [facility] Hemoglobin 13.6(L) 13.7 - 16.5 g/dL 08/28/2024 4:18 PM EDT [facility] Hematocrit 39.2(L) 40.5 - 48.5 % 08/28/2024 4:18 PM EDT [facility] MCV 86.2 80.0 - 94.0 fL 08/28/2024 4:18 PM EDT [facility] MCH 29.9 26.0 - 34.0 pg 08/28/2024 4:18 PM EDT [facility] MCHC 34.7 31.0 - 36.0 g/dL 08/28/2024 4:18 PM EDT [facility] RDW 12.3 12.0 - 15.0 % 08/28/2024 4:18 PM EDT [facility] RDW Standard Deviation 38.9 35.1 - 43.9 fL 08/28/2024 4:18 PM EDT [facility] Platelets 285 140 - 440 10*3/uL 08/28/2024 4:18 PM EDT [facility] MPV 8.8(L) 9.4 - 12.4 fL 08/28/2024 4:18 PM EDT [facility] Neutrophil % 56.9 50.0 - 75.0 % 08/28/2024 4:18 PM EDT [facility] Immature Grans % 0.1 0.0 - 0.9 % 08/28/2024 4:18 PM EDT [facility] Lymphocyte % 31.1 20.0 - 44.0 % 08/28/2024 4:18 PM EDT [facility] Monocyte % 7.6 0.0 - 14.0 % 08/28/2024 4:18 PM EDT [facility] Eosinophil % 3.5 0.0 - 5.0 % 08/28/2024 4:18 PM EDT [facility] Basophil % 0.8 0.0 - 2.0 % 08/28/2024 4:18 PM EDT [facility] Neutrophil # 4.26 1.80 - 7.70 10*3/uL 08/28/2024 4:18 PM EDT [facility] Immature Grans # <0.03 0.00 - 0.03 10*3/uL 08/28/2024 4:18 PM EDT [facility] Lymphocyte # 2.30 1.00 - 4.75 10*3/uL 08/28/2024 4:18 PM EDT [facility] Monocyte # 0.60 0.00 - 0.60 10*3/uL 08/28/2024 4:18 PM EDT [facility] Eosinophil # 0.30 0.00 - 0.80 10*3/uL 08/28/2024 4:18 PM EDT [facility] Basophil # 0.10 0.00 - 0.20 10*3/uL 08/28/2024 4:18 PM EDT [facility] nRBC % 0.0 0 - 0 /100 WBCs 08/28/2024 4:18 PM EDT [facility] nRBC # <0.01 0.00 - 0.13 10*3/uL 08/28/2024 4:18 PM EDT [facility] Blood Structure of peripheral vein / Unknown Venipuncture / Unknown 08/28/2024 4:11 PM EDT 08/28/2024 4:16 PM EDT us [facility] BLOOD ORDERABLES Final Result Performing Organization Address City/State/[facility] Co de Phone Number [facility] [address] [facility] [address] [place] [address], * Comprehensive Metabolic Panel (08/28/2024 4:11 PM EDT) NA 138 136 - 145 mmol/L 08/28/2024 4:39 PM EDT [facility] K 3.9 3.5 - 5.1 mmol/L 08/28/2024 4:39 PM EDT [facility] Cl 103 98 - 109 mmol/L 08/28/2024 4:39 PM EDT [facility] CO2 24 22 - 32 mmol/L 08/28/2024 4:39 PM EDT [facility] Anion Gap 15 >=0 08/28/2024 4:39 PM EDT [facility] Glucose 94 60 - 99 mg/dL 08/28/2024 4:39 PM EDT [facility] Creatinine 0.92 0.50 - 1.12 mg/dL 08/28/2024 4:39 PM EDT [facility] Calcium 9.8 8.4 - 10.4 mg/dL 08/28/2024 4:39 PM EDT [facility] Total Protein 7.2 6.6 - 8.7 g/dL 08/28/2024 4:39 PM EDT [facility] Albumin 4.8 3.5 - 5.0 g/dL 08/28/2024 4:39 PM EDT [facility] Bilirubin, Total 0.5 0.2 - 1.2 mg/dL 08/28/2024 4:39 PM EDT [facility] Alkaline Phosphatase 40 40 - 129 U/L 08/28/2024 4:39 PM EDT [facility] AST 21 0 - 40 U/L 08/28/2024 4:39 PM EDT [facility] ALT 15 <=41 U/L 08/28/2024 4:39 PM EDT [facility] BUN 16 6 - 20 mg/dL 08/28/2024 4:39 PM T [facility] eGFR >90 >=60 mL/min/1. 73m2 08/28/2024 4:39 PM EDT [facility] Comment:The estimated glomer ular filtration rate (eGFR) is calculated using a new formula developed by the NKF-ASN task force to eliminate race-based correction factors. The new formula uses serum/plasma creatinine, age, and gender to determine eGFR. A value below 60mls/min might indicate kidney disease and will be flagged. For additional information, see Camara et al, Am J Kidney Dis. 2021;79(2):268- 288, A Unifying Approach for GFR estimation: Recommendations of the NKF-ASN Task Force on Reassessing the Inclusion of Race in Diagnosing Kidney Disease . Globulin, Total 2.4 2.1 - 4.2 g/dL 08/28/2024 4:39 PM EDT [facility] A/G Ratio 2.0 1.5 - 3.0 08/28/2024 4:39 PM EDT [facility] Blood Structure of peripheral vein / Unknown Venipuncture / Unknown 08/28/2024 4:11 PM EDT 08/28/2024 4:16 PM EDT [facility] BLOOD ORDERABLES Final Result [facility] [address] [place] [address], * CT Head WO Contrast (08/28/2024 3:55 [...] obtain the completed interpretation. ? Workstation ID: [id number] Up-to-date CT equipment and radiation dose reduction [...] cells are essentially clear. Resulting Agency Comment [id number] Procedure Note Yamil Ortega MD - 08/28/2024 [...] possible to obtain thecompleted interpretation. Workstation ID: [id number] Up-to-date CT equipment and radiation dose reduction techniques wereemployed. CTDIvol: 60.1 mGy. DLP: 1070 mGy-cm. Bry [facility] IMG CT PROCEDURES Final Res ult from Last 3 Months Insurance [facility] Care Teams Candy Attendant Relationship Specialty Start Date End Date Luis Ryan PA [address] [place] [id number] PCP - General 08/28/24
== END 2024-09-06 12:09 | disposition home or self-care (01) ==
LOC: HO.HMCH 11:00
DX: Z23 Encounter for immunization (principal)

== ENCOUNTER → 2024-09-06 10:59 | Outpatient (BNVA) | payer OTHER, SELFPAY | DX: Z00.00 Encounter for general adult medical examination without abnormal findings (principal); Z23 Encounter for immunization; G43.919 Migraine, unspecified, intractable, without status migrainosus; M79.12 Myalgia of auxiliary muscles, head and neck; M26.53 Deviation in opening and closing of the mandible; M26.621 Arthralgia of right temporomandibular joint; K08.2 Atrophy of edentulous alveolar ridge; M54.41 Lumbago with sciatica, right side; E55.9 Vitamin D deficiency, unspecified | CPT/HCPCS: 90471; 90714 ==

== ENCOUNTER 2024-12-13 15:40 | Outpatient (AMB) | payer OTHER, SELFPAY ==
--- OUTSIDE RECORDS SUMMARY | 2024-12-08 14:45 | XMS_ITS | Encounter Summary ---
Author Organization [facility] Address [address] [place] [address] Care Team Providers Care Rn Or Lpn Name Role Phone Luis Ryan Primary Care Provider Reason for Visit * Reason Comments PT Treatment * Physical Therapy (Routine) - Authorized Specialty Diagnoses / Procedures Referred By Tasha araya Referred To Contact Physical Therapy Diagnoses Myalgia myalgia Procedures EVAL 60 Alas Bishop, Adeline, DMD [address] [place] [address] Phone: tel: fax: [facility] [address] [place] [address] Phone: tel: fax: Referral ID Status Reason Start Date Expiration Date V isits Requested Visits Authorized [id number] Authorized 11/08/2024 04/20/2025 0 23 Encounter Details Date Type Department Care Team (Late st Contact Info) Description 12/08/2024 2:45 PM EDT Treatment [facility] [address] [place] [address] Nataliya Garrett, PT TMJ pain dysfunction syndrome (Primary Dx); Neck pain Social History Tobacco Use Types Packs/Day Years Used Date Smoking Tobacco: Never Smokeless Tobacco: Never Comments:: Alcohol Use Standard Drinks/Week Comments Not Currently 0 (1 standard drink = 0.6 oz pur e alcohol) Sex and Gender Information Value Date Recorded Sex Assigned at Male 08/28/2024 2:35 PM EDT Legal Sex Male 6:43 PM EDT Gender Identity Male 08/28/2024 2:35 PM EDT Sexual Orientation Not on file documented as of this encounter Progress Notes * Nataliya Minamarichuy, PT - 12/08/2024 3:38 PM EDT Physical Therapy Treatment Patient Name: Bakari Zepeda Date of : 2000 Date of Encounter: 12/08/2024 Diagnosis: (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 (primary encounter diagnosis) (M54.2) Neck pain Completed Visits: 3 of 23 Scheduled Visits: 2 Expiration Date: 04/20/2025 Diagnosis: Myalgia Referred by:ADELINE CALDWELL Referral Comment: 23 visits remaining Pain Assessment Pain Scale: Numbers Treatment Pain: Pre Treatment (Numbers Scale): 310 Pain Location - Side (Numbers Scale): Right Pain Location - Orientation (Numbers Scale): lateral Pain Location - Body (Numbers Scale): (jaw) Rehabilitation handoff communication: Completed Treatment Exercise Precautions/Situation/Background: right TMJ pain and dysfunction Subjective: Patient reports that the jaw has not gotten worse. He is doing the exercises. He is seeing his PCP next week and then go from there. He reports no pain but tightness at right shoulder. Therapeutic Exercise #1: sitting x 6: diaphramatic breathing, diaphramatic breathing with tongue ontop of mouth, tongue on top of mouth with controlled opening and closing of mouth, cervical retraction, tongue clicks Therapeutic Exercise #2: sitting x 10: scapular retraction Therapeutic Exercise #3: standing x 10 with level 3 band: scapular retraction with increased substitution at end ROM Therapeutic Exercise #4: sitting x 5 x 5 seconds cervical isometrics: flexion, extension, left lateral flexion, right lateral flexion, left rotation, right rotation Therapeutic Exercise #5: sitting jaw isometrics x 6 x 5 seconds: jaw deviation left, jaw deviation right, jaw abduction, jaw adduction with each side reciprocally Therapeutic Exercise #6: sitting controlled lateral excursion with finger bites x 6 to left, x 6 toright Therapeutic Exercise #7: sidelying jaw excursion with controlled return neutral x 6 x 2left and x 6x 2 right Therapeutic Exercise #8: prone scap retraction with shoulder abduction at 90/90 with increased substitution with upper traps. HEP Provided: Access Code: [email or web address] URL: [email or web address] Date: 12/08/2024 Prepared by:Nataliya Exercises - Seated Diaphragmatic Breathing - 1 x daily - 7 x weekly - 1 sets - 10 reps - Tongue on Roof of Mouth - 6 x daily - 7 x weekly - 1 sets - 6 reps - Controlled Jaw Opening with Tongue on Roof of Mouth - 6 x daily - 7 x weekly - 1 sets - 6 reps - Tongue Clicks TMJ - 6 x daily - 7 x weekly - 1 sets - 6 reps - Isometric Jaw Deviation - 6 x daily - 7 x weekly - 1 sets - 6 reps - Isometric Jaw Abduction - 6 x daily - 7 x weekly - 1 sets - 6 reps - Isometric Jaw Adduction - 6 x daily - 7 x weekly - 1 sets - 6 reps - Seated Chin Tuck with Neck Elongation - 6 x daily - 7 x weekly - 1 sets - 6 reps - Standing Isometric Cervical Sidebending with Manual Resistance - 1 x daily - 7 x weekly - 1 sets - 5 reps - 5 seconds hold - Standing Isometric Cervical Flexion with Manual Resistance - 1 x daily - 7 x weekly - 1 sets - 5 reps - 5 seconds hold - Standing Isometric Cervical Extension with Manual Resistance - 1 x daily - 7 x weekly - 1 sets - 5 reps - 5 seconds hold - Seated Isometric C ervical Sidebending - 1 x daily - 7 x weekly - 1 sets - 5 reps - 5 seconds hold - Scapular Retraction with Resistance - 1 x daily - 7 x weekly - 1 sets - 10 reps - Scapular Retraction with ResistanceAdvanced - 1 x daily - 7 x weekly - 1 sets - 10 reps - Single Arm Shoulder Extension with Anchored Resistance - 1 x daily - 7 x weekly - 1 sets - 10 reps - Sidelying Jaw Deviation Mobilization - 1-2 x daily - 7 x weekly - 1 sets - 6 reps Progress Progress: Progressing toward goals Skilled Observations Skilled Observations: Patient presents with decreased reactive jaw movement with conversation suggesting decreased pain and improved control. Patient/Caregiver Education Patient/Caregiver Education: updated HEP and added sidelying jaw excursion Skilled therapy performed through: Verbal cues, Education with exercises Level of Understanding: No questions, good recall Assessment/Plan Assessment: Patient with improved control at jaw and now appreciative of decreased strength on leftto support right. He continues with right shoulder pain but tends to extend ROM with scap retraction and educated on using control and not push to end ROM because then substitution begins. Plan: re-assessment next visit, review HEP and if goals met or maximized, consider discharge to [facility]. Total Treatment Time Start Time: 1453 Stop Time: 1531 Time Calculation (min): 38 min Therapeutic Interventions( Document time spent in Minutes) Therapeutic Exercise: 38 Nataliya Garrett PT PT, [place]: [id number] documented in this encounter Plan of Treatment Not on file documented as of this encounter Visit Diagnoses Diagnosis TMJ pain dysfunction syndrome- Primary Neck pain Cervicalgia documented in this encounter Care Teams Rn Or Lpn Relationship Specialty Start Date End Date Luis Ryan PA [address] [place] [id number] PCP - General 08/28/24 documented as of this encounter
--- OUTSIDE RECORDS SUMMARY | 2024-12-13 12:00 | XMS_ITS | Encounter Summary ---
Author Organization [facility] Address [address] [place] [address] Care Team Providers Care Bar Back Name Role Phone Luis Ryan Primary Care Provider [phone] Reason for Visit * Reason Comments PT Discharge * Physical Therapy (Routine) - Authorized Specialty Diagnoses / Procedures Referred By Tasha araya Referred To Contact Physical Therapy Diagnoses Myalgia myalgia Procedures EVAL 60 Alas Adeline Alas, DMD [address] [place] [address] Phone: tel: fax: [facility] Physical Therapy Department [address] [place] [address] Phone: tel: fax: Referral ID Status Reason Start Date Expiration Date V isits Requested Visits Authorized [id number] Authorized 11/08/2024 04/20/2025 0 23 Encounter Details Date Type Department Care Team (Late st Contact Info) Description 12/13/2024 12:00 PM EDT Evaluation [facility] Physical Therapy Department [address] [place] [address] Nataliya Garrett, PT TMJ pain dysfunction syndrome [...] of this encounter Progress Notes * Nataliya Garrett, PT - 12/13/2024 11:56 AM EDT Physical Therapy Discharge Patient Name: Bakari Zepeda Date of : 2000 Date of Encounter: 12/13/2024 Diagnosis: (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 (primary encounter diagnosis) (M54.2) Neck pain Completed Visits: 4 of 23 Scheduled Visits: 1 Expiration Date: 04/20/2025 Diagnosis: Myalgia Referred by:ADELINE CALDWELL Referral Comment: 23 visits remaining Pain Assessment Pain Scale: Numbers Treatment Pain: Pre Treatment (Numbers Scale): 2/10 Pain Location - Side (Numbers Scale): Right Pain Location - Orientation (Numbers Scale): lateral Pain Location - Body (Numbers Scale): (jaw) Treatment Exercise Precautions/Situation/Background: right TMJ pain and dysfunction Subjective: Patient reports increased pain at right shoulder with lifting and moving loads but ableto reposition correctly and improve posture. He reports jaw is much better than it was and appreciates that he will conitnue to need to the the exercises. Therapeutic Exercise #1: standing x 10 x 2 with level 3 band: scapular retraction, scap retraction with shoulder extension, latiss pull down Therapeutic Exercise #2: in front of mirror x 10: jaw depression with tongue at top of mouth, completed with tongue resting at bottom of mouth without lateral excursion until fatigued Therapeutic Exercise #3: sidelying jaw excursion with controlled return neutral x 10 left and x 10 right Therapeutic Exercise #4: sitting with palpation of all jaw motions and resistance x 3 HEP Provided: Access Code: [email or web address] URL: [email or web address] Date: 12/13/2024 Prepared by:Nataliya Exercises - Seated Diaphragmatic Breathing [...] 1 sets - 6 reps Progress Progress: Discontinue therapy Skilled Observations Skilled Observations: Patient demonstrates improved awareness of jaw and shoulder posture with decreased pain overall. He no longer presents with repetitive jaw opening and lateral excursion suggesting decreased pain and improved comfort at rest. He demonstrated improved scapular stabilizer control today with more advanced band. Patient/Caregiver Education Patient/Caregiver Education: reviewed HEP and strategies for progression of HEP at home, given level 3 band for home Skilled therapy performed through: Verbal cues, Education with exercises, Re-education Level of Understanding: No questions, good recall Date of Initial Physical Therapy Evaluation: 11/10/24 Number of Attended visits: 4 Goal Review: Short Term goals: Patient will be independent with initial HEP: met with excellent compliance Patient will report pain on arrival in clinic to 1 /10 or less, and with worst pain less than or equal to 5/10: progress with 2/10, met at worst to 4/10 Patient will demonstrate increased range of motion of mandibular depression without lateral excursion: met with no lateral excursion with tongue on top of mouth and only slight lateral exclusion without tongue placement Patient will demonstrate increased strength of right facial and jaw musculature to allow for mandibular movement with control without clicking or lateral excursions: met with patient able to demonstrate without cues [employer] Goals: Patient will improve FOTO score from 35 to 47: met with 52 Patient will reports periods of up to 1 hour without pain: met with patient reports. 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 Since patient's personal goals have been met to have a HEP to meet his needs, and majority of goals met and patient is independent with HEP, skilledphysical therapy is no longer indicated and patient appropriate for discharge. Patient agreeable toplan. Patient educated to contact physician if change in status occurs with questions of future physical therapy indicated. Plan: Pt is discharged from physical therapy after treatment today due to rehab potential met at this time. Pt was advised to call with further questions or problems, continue daily HEP, and follow up with physician as needed. Discharge Summary Reason for Discharge: patient met all goals and outcomes, independent with HEP and symptom management Outcomes Achieved: able to achieve all goals within established timeline Total Treatment Time Start Time: 1200 Stop Time: 1239 Time Calculation (min): 39 min Therapeutic Interventions( Document time spent in Minutes) Therapeutic Exercise: 39 Nataliya Garrett PT PT, [place]: [id number] documented in this encounter Plan of Treatment Not on file documented as of this encounter Visit Diagnoses Diagnosis TMJ pain dysfunction syndrome- Primary Neck pain Cervicalgia documented in this encounter Care Teams Bar Back Relationship Specialty Start Date End Date Luis Ryan PA [address] [place] [id number] PCP - General 08/28/24 documented as of this encounter
[2024-12-13 15:47] VITALS: BP 136/52; PULSE 74; RESP 18; TEMP 36.4; O2SAT 97; BMI 20.8
--- NOTE | 2024-12-13 15:47 | MHC.PC.OV ---
Vital Signs 12/13/24 15:47 Height 5 ft 11 in Weight 149 lb BMI 20.8 BP 136/52 L Blood Pressure Location Lt brachial Position Sitting Respiration 18 Pulse 74 Pulse Source Pulse Oximeter Temp 97.5 F Temp Source Temporal Artery Scan Pulse Oximetry (%) 97 Oxygen Delivery Method Room Air Intake Visit Reasons: jaw issues Dicer Operator Required: No Accompanied by: Self / Same As Patient Allergies No Known Allergies Allergy (Verified 12/13/24 16:04) Medication List - Last Reconciled 12/13/24 by MRACO A Shipley fluticasone propionate 50 mcg/actuation 2 sprays intranasal BID PRN 30 days Tobacco use date assessed: 12/13/24 Dental Screening Dental Screen Date: 12/13/24 Did you have a dental visit in the last 12 months?: Yes Did you have a dental problem in the last 6 months where you did not have access to dental care?: No Was dental information given to patient?: Patient has dentist HPI jaw issues HPI Details The patient is a 24-year-old male presenting with jaw problems and right-sided body discomfort. 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 He has been managing the condition conservatively with NSAIDs and has completed physical therapy for his jaw, although he continues to experience discomfort on the right side of his head, described as feeling squished in. The patient also reports ongoing issues with the right side of his body, including stiffness and a sensation of weakness compared to the left side. He describes his right shoulder as sitting more forward and inward than the left, and rates the strength of his right leg as a 4 out of 10 compared to his left. He has completed physical therapy for his back but continues to perform exercises independently. The patient has been using Tylenol for pain management, although he has not used it since October. He reports symptoms of pins and needles and numbness, particularly after long shifts, and has not tried gabapentin previously. [facility] Medical History ADHD Surgical History History of wisdom tooth extraction Family History Other Diverticulosis Mental health disorder Substance use disorder Social History Housing: House Alcohol intake: never Patient Tobacco Use Status: Never used Tobacco e-Cigarette/Vaping Use: Never Used Second Hand Smoke Exposure: No Substance Use Type: Marijuana service: No Current occupational status: employed Current occupation: [employer] Cognitive needs: No Hearing needs: No Vision needs: No Questionnaire PHQ-9 Over the last 2 weeks, how often have you been bothered by any of the following problems? 1. Little interest or pleasure in doing things: several days 2. Feeling down, depressed, or hopeless: several days 3. Trouble falling or staying asleep, or sleeping too much: several days 4. Feeling tired or having little energy: several days 5. Poor appetite or overeating: several days 6. Feeling bad about yourself - or that you are a failure or have let yourself or your family down: several days 7. Trouble concentrating on things, such as reading the newspaper or watching television: several days 8. Moving or speaking so slowly that other people could have noticed. Or the opposite - being so fidgety or restless that you have been moving around a lot more than usual: not at all 9. Thoughts that you would be better off or of hurting yourself in some way: not at all Total score: 7 Depression Screening Interpretation: Positive Depression Screening Done: Yes Source: Developed by Drs. Gilberto Tate, Malena Bryson, Nelson Mayes and colleagues, with an educational aleida from [facility]. Thrive Questionnaire Date Thrive assessed: 12/13/24 I am a: Patient What is your living situation today?: I have a steady place to live Within the past 12 months, did the food you bought not last and you didn't have the money to get more?: Often true Within the past 12 months, did you worry whether your food would run out before you got money to buy more?: Often true Do you have trouble paying for medicines?: Yes Do you have trouble getting transportation to medical appointments?: No Do you have trouble paying your heating and electricity bill?: No Do you have trouble taking care of your child, family member or friend?: No Do you have trouble with day-to-day activities such as bathing, preparing meals, shopping, managing finances, etc.?: Yes Are you currently unemployed and looking for a job?: No Are you interested in more education?: No Please select the resources that you would like help with: Food Currently or been in a relationship where the following occur: No concerns reported THRIVE Score: 2 AUDIT C Alcohol Use Questionnaire (AUDIT-C) 1. How often do you have a drink containing alcohol?: Never 3. How often do you have six or more drinks on one occasion?: Never Total Score: 0 Score Reviewed/Action Taken: No NATA-7 AMB Questionnaire NATA-7 Date NATA - 7 assessed: 12/13/24 Feeling nervous, anxious, or on edge: 1 = Several days Not being able to stop or control worryin = Several days Worrying too much about different things: 1 = Several days Trouble relaxin = Several days Being so restless that it is hard to sit still: 2 = More than half the days Becoming easily annoyed or irritable: 3 = Nearly every day Feeling afraid as if something awful might happen: 1 = Several days Total NATA-7 score (0-4 normal; 5-9 mild; 10-14 moderate; 15-21 severe): 10 Source: Developed by Drs. Gilberto Tate, Malena Bryson, Nelson Mayes and colleagues, with an educational aleida from [facility]. Review of Systems Const Details: - Neurological: Reports right-sided head discomfort described as squished in, pins and needles sensation, and numbness, particularly after long shifts. - Musculoskeletal: Reports stiffness and weakness on the right side of the body, with the right shoulder sitting more forward and inward than the left. Reports headache(s) (discomfort feeling right side being squished, pins and needles sensation ) Eyes Denies loss of vision ENT Denies vertigo, Denies dizziness, Reports headache(s) (discomfort feeling right side being squished, pins and needles sensation ) and Denies sore throat Card Denies chest pain, Denies leg edema and Denies lightheadedness Resp Denies cough, Denies hemoptysis and Denies wheezing GI Denies abdominal pain, Denies melena, Denies constipation, Denies diarrhea and Denies vomiting Denies dysuria, Denies urinary frequency and Denies urinary urgency Musc Denies arthralgias, Denies joint swelling, Reports numbness (right side of body upper and lower extremities) and Reports tingling (right side of body upper and lower extremities) Neuro Denies Abnormal speech present, Denies behavioral changes, Denies vertigo, Denies dizziness, Reports headache(s) (discomfort feeling right side being squished, pins and needles sensation ), Denies loss of vision, Denies memory loss, Reports numbness (right side of body upper and lower extremities) and Reports tingling (right side of body upper and lower extremities) Psych Denies anxiety, Denies behavioral changes, Denies depression, Denies memory loss and Denies panic attacks Ankur/Lymph Denies easy bleeding and Denies easy bruising Aller/Immun Denies wheezing Physical exam (Primary Care) Vital Signs: Last Vital Signs Temp 97.5 F 12/13/24 15:47 Pulse 74 12/13/24 15:47 Resp 18 12/13/24 15:47 BP 136/52 L 12/13/24 15:47 Pulse Ox 97 12/13/24 15:47 Oxygen Delivery Method Room Air 12/13/24 15:47 BMI result Body Mass Index 20.8 Tobacco/Smoking Status: Tobacco use Status Tobacco use date assessed 12/13/24 12/13/24 15:52 Patient Tobacco Use Status Never used Tobacco 12/13/24 15:52 e-Cigarette/Vaping Use Never Used 12/13/24 15:52 PHQ-9: PHQ-9 Score PHQ-9: Total score 7 12/14/24 08:49 Depression Screening Interpretation: Positive Thrive Assessment: Date of Thrive Assessment Date Thrive assessed 12/13/24 12/13/24 15:52 Currently or been in a relationship where the following occur: No concerns reported Const General: healthy appearing, no acute distress, alert and awake Nutritional Appearance: well nourished Orientation/consciousness: oriented to person, oriented to place and oriented to time HENHI Head: Yes other (decreased sensation on the right side of face) Ears: TM's normal bilaterally General nose exam: Normal nasal mucous membranes and turbinates present Mouth: abnormal TMJ (discomfort in the right jaw-improved with PT) Eyes Conjunctivae: conjunctivae normal Sclerae: sclerae normal Pupils: Equal, round and reactive pupils present Neck Neck: Yes no lymphadenopathy and Yes no JVD Thyroid: Thyroid normal Carotids: no bruits Resp Effort & Inspection: normal respiratory effort and not tachypneic Auscultation: no crackles, no rales, no rhonchi and no wheezes Cardio Rate: regular rate Rhythm: regular rhythm Heart sounds: no murmurs and normal S1 and S2 GI Palpation (GI): Soft to palpation, nontender, no hepatomegaly and no splenomegaly Auscultation: normal bowel sounds Skin General skin exam: no rashes or lesions noted and dry skin Neuro General: oriented to person, oriented to place and oriented to time Cranial nerves: Yes Equal, round and reactive pupils present and Yes Nystagmus not present Speech: No Abnormal speech present Gait exam (Neuro): Normal gait present Motor exam (neuro): no tremor noted Sensory Exam: Upper extremity sensory exam abnormal right light-touch abnormal decreased and Abnormal lower extremity sensory exam right light-touch abnormal decreased Extrem Right upper extremity: full ROM Left upper extremity: full ROM Right lower extremity: full ROM; no edema Left lower extremity: full ROM; no edema Psych Mental Status: mental status grossly normal Speech and movement: Normal speech and movement present Affect: normal affect Attitude: cooperative Thought process: Normal thought process present Coding Level of Care Code Est Pt Level 3 (17982) Diagnoses Arthralgia of right temporomandibular joint M26.621 Intractable migraine without status migrainosus, unspecified migraine type G43.919 Migraine type: unspecified Status migrainosus presence: without status migrainosus Intractability: intractable Right arm and right face tingling R20.2 Right leg paresthesias R20.2 Myalgia of auxiliary muscles, head and neck M79.12 Hoopa syndrome M24.20 Time Spent (min) 38 Assessment & Plan Assessment & Plan (1) Arthralgia of right temporomandibular joint: Code(s): M26.621 - Arthralgia of right temporomandibular joint Category: Medical (2) Migraine: Code(s): G43.909 - Migraine, unspecified, not intractable, without status migrainosus Category: Medical Qualifiers: Migraine type: unspecified Status migrainosus presence: without status migrainosus Intractability: intractable Qualified Code(s): G43.919 - Migraine, unspecified, intractable, without status migrainosus (3) Right arm and right face tingling: Code(s): R20.2 - Paresthesia of skin Category: Medical (4) Right leg paresthesias: Code(s): R20.2 - Paresthesia of skin Category: Medical (5) Myalgia of auxiliary muscles, head and neck: Code(s): M79.12 - Myalgia of auxiliary muscles, head and neck Category: Medical (6) Hoopa syndrome: Code(s): M24.20 - Disorder of ligament, unspecified site Category: Medical Plan Plan Patient was informed and verbally consented to the use of an ambient scribe for clinic note documentation during this visit. 1. 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 Conservative management with NSAIDs has been recommended, and surgical intervention may be considered if symptoms worsen. 2. Right-Sided Body Discomfort The patient reports stiffness and weakness on the right side of the body, with a sensation of the right shoulder sitting more forward and inward than the left. Physical therapy has been completed, but exercises continue independently. Gabapentin has been suggested for nerve pain management, with a recommendation to start at bedtime to assess tolerance. Contact neurology who the patient has an upcoming appointment with. Originally for his episode of a severe migraine that led him to the emergency room. Explained to the provider the patient current complaints which they plan to address upon his appointment. The provider requested an EMG, NCTs of his right side, along with a cervical xray. These were ordered and the patient was updated. Medications: New gabapentin 100 mg PO TID 30 caps 3RF
--- OUTSIDE RECORDS SUMMARY | 2024-12-13 17:41 | XMS_ITS | Clinical Summary ---
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 Short stature 11/29/2014 ADHD (attention deficit hyperactivity disorder) 11/29/2014 Bipolar I disorder, most recent episode depresse d 09/08/2014 Encounters Date Type Department Care Team Description 12/13/2024 12:00 PM EDT Evaluation [facility] Department [address] [place] [address] Manseau, Nataliya, PT TMJ pain dysfunction syndrome (Primary Dx); Neck pain 12/08/2024 2:45 PM EDT Treatment [facility] [address] [place] [id number] Manseau, Nataliya, PT TMJ pain dysfunction syndrome (Primary Dx); Neck pain 11/29/2024 4:00 PM EDT Treatment [facility] [address] [place] [id number] Manseau, Nataliya, PT TMJ pain dysfunction syndrome (Primary Dx); Neck pain 11/10/2024 2:30 PM EDT Evaluation [facility] Department [address] [place] [id number] Manseau, Nataliya, PT Neck pain (Primary Dx); TMJ pain dysfunction syndrome 10/20/2024 9:40 PM EDT - 10/20/2024 9:43 PM EDT [facility] [address] [place] [address] Discharge Disposition: Left Without Being Seen (07) from Last 3 Months Immunizations Immunization Administration [...] Date Smoking Tobacco: Never Smokeless Tobacco: Never Tobacco Cessation:Counseling Given: Not Answered Comments:: Alcohol Use Standard Drinks/Week Comments Not Currently 0 (1 standard drink = 0.6 oz pur e alcohol) Sex and Gender Information Value Date Recorded Sex Assigned at Male 08/28/2024 2:35 PM EDT Legal Sex Male 6:43 PM EDT Gender Identity Male 08/28/2024 2:35 PM EDT Sexual Orientation Not on file Last Filed Vital Signs Vital Sign Reading Time Taken Comments Blood Pressure 115/72 10/20/2024 6:58 PM EDT Pulse 86 10/20/2024 6:58 PM EDT Temperature 37.2 C (99 F) 10/20/2024 6:58 PM EDT Respiratory Rate 18 10/20/2024 6:58 PM EDT Oxygen Saturation 96% 10/20/2024 6:58 PM EDT Inhaled Oxygen Concentration - - Weight 68 kg (150 lb) 10/20/2024 6:58 PM EDT Height 188 cm (6' 2 ) 10/20/2024 6:58 PM EDT Body Mass Index 19.26 10/20/2024 6:58 PM EDT Plan of Treatment Health Maintenance Due Date Last Done Comments HIV Screening 2000 Hepatitis C Screening 2000 HPV Vaccines (3 - Male 3-dose series) 06/18/2017 02/19/2017, 12/18/2016 COVID-19 Vaccine ( season) 2023 Alcohol/Substance Use Screening 04/21/2024 Depression Screening and Follow-Up 04/21/2024 Social Drivers of Health Annual Screening 04/21/2024 Influenza Vaccine (#1) 2024 12/18/2016 DTaP,Tdap,and Td Vaccines (8 - Td or Tdap) 09/06/2034 09/06/2024, 11/16/2012, 11/06/2004, Additional history exists RSV Vaccine (60+ years old and patients) (1 - 1-dose 75+ series) 02/08/2075 Hepatitis B Vaccines Completed 2000, 2000, 2000 Pneumococcal Vaccine: Pediatric (0-5 Years) and At-Risk Patients (6-50 Years) Aged Out 06/04/2001, 06/04/2001, 02/04/2001, Additional history exists No longer eligible based on patient's age to complete this topic Varicella Vaccines Completed 11/16/2012, 02/18/2002 Insurance [employer] Care Teams National Expansion Recruiter Relationship Specialty Start Date End Date Luis Ryan PA [address] [place] [id number] PCP - General 08/28/24
--- OUTSIDE RECORDS SUMMARY | 2024-12-13 17:43 | XMS_ITS | Clinical Summary ---
Author Organization [facility] lin Address [address] [facility] [address] [place] [address] Care Team Providers Care Bowling Ball Marker Name Role Phone No, Pcp FORM MAKER PLASTER Primary Care Provider Unavailabl e Allergies No [...] 77 11/08/2014 3:44 PM EDT Temperature 37.1 C (98.8 F) 11/08/2014 3:44 PM EDT Respiratory Rate 14 11/08/2014 3:44 PM EDT [...] Adults 18 yrs or above (or HM Modifier)([facility]) 02/08/2018 Hepatitis C Virus Infection in Adolescents and Adults: Screening (or Modifier) ([facility]) 02/08/2018 SDOH Screening Reminder: Karie eden for all adults ([facility]) 02/08/2018 Tobacco Smoking Cessation: i n Adults excluding Women: Behavioral and Pharmacotherapy Interventions ([facility]) 02/08/2018 DTaP/Tdap/Td Vaccines ([facility]) (1 - Tdap) 02/08/2019 COVID-19 Vaccine Screening: Initial Series and Booster Status ([facility]) ( - 2023- season) 2023 Flu Vaccination: Yearly for ages 18mos through 64 years (or Modifier)([facility]) 11/19/2024 Zoster/Shingles Vaccine Seri es Screening: Adults aged 18+ yrs (or HM Modifiers)([facility]) (1 of 2) 02/08/2050 Pneumococcal Vaccination Scr eening: Pts 0-19 & 19-49 yrs of age ([facility]) Aged Out No longer eligible based on patient's age to complete this topic Medical Devices Not on file Care Teams Bowling Ball Marker Relationship Specialty Start Date End Date No, Pcp, FORM MAKER PLASTER N/A Do not use PCP - General 11/08/14
== END 2024-12-13 16:36 | disposition home or self-care (01) ==
LOC: HO.HMCH 15:41
DX: M26.621 Arthralgia of right temporomandibular joint (principal); G43.919 Migraine, unspecified, intractable, without status migrainosus; R20.2 Paresthesia of skin; M79.12 Myalgia of auxiliary muscles, head and neck; M24.20 Disorder of ligament, unspecified site

== ENCOUNTER 2024-12-27 10:17 | Outpatient (REF) | payer OTHER, SELFPAY ==
--- NOTE | ~2024-12-27 | XR_ITS ---
EXAMINATION: XR CERVICAL SPINE CLINICAL INFORMATION: M79.12 - Myalgia of auxiliary muscles, head and neck COMPARISON: None available. TECHNIQUE: AP lateral and atlantoodontoid views FINDINGS: Craniocervical junction is intact. No acute cortical disruption or malalignment. Loss of the physiologic lordosis. No lytic or blastic lesions. Upper airway is patent. Calcification of the stylohyoid ligament. XR/XR cervical spine 3V IMPRESSION: No acute fracture or listhesis. Consider Northway syndrome in the correct clinical settings. Electronically signed by: Thompson England MD 12/27/2024 12:19 PM EDT
--- OUTSIDE RECORDS SUMMARY | 2024-12-27 12:14 | XMS_ITS | Clinical Summary ---
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 Short stature 11/29/2014 ADHD (attention deficit hyperactivity disorder) 11/29/2014 Bipolar I disorder, most recent episode depresse d 09/08/2014 Encounters Date Type Department Care Team Description 12/13/2024 12:00 PM EDT Evaluation [facility] Physical Therapy Department [address] [place] [address] Manseau, Nataliya, PT TMJ pain dysfunction syndrome (Primary Dx); Neck pain 12/08/2024 2:45 PM EDT Treatment [facility] Physical Therapy Department [address] [place] [address] Manseau, Nataliya, PT TMJ pain dysfunction syndrome (Primary Dx); Neck pain 11/29/2024 4:00 PM EDT Treatment [facility] Physical Therapy Department [address] [place] [id number] Manseau, Nataliya, PT TMJ pain dysfunction syndrome (Primary Dx); Neck pain 11/10/2024 2:30 PM EDT Evaluation [facility] Physical Therapy Department [address] [place] [id number] Manseau, Nataliya, PT Neck pain (Primary Dx); TMJ pain dysfunction syndrome 10/20/2024 9:40 PM EDT - 10/20/2024 9:43 PM EDT Emergency [facility] Emergency Department [address] [place] [address] Discharge Disposition: Left Without Being Seen (07) [...] - Male 3-dose series) 06/18/2017 02/19/2017, 12/18/2016 Alcohol/Substance Use Screening 04/21/2024 Depression Screening and Follow-Up 04/21/2024 Social Drivers of Health Annual Screening 04/21/2024 COVID-19 Vaccine ( - season) 2024 Influenza Vaccine (#1) 2024 12/18/2016 DTaP,Tdap,and Td [...] 11/16/2012, 02/18/2002 Insurance [employer] Care Teams Property Handler Relationship Specialty Start Date End Date Luis Ryan PA [address] [place] [id number] PCP - General 08/28/24
== END 2024-12-27 10:18 | disposition home or self-care (01) ==
LOC: HO.XRAY 10:17
DX: M79.12 Myalgia of auxiliary muscles, head and neck (principal); M54.2 Cervicalgia
CPT/HCPCS: 72040

== ENCOUNTER → 2024-12-27 10:20 | Outpatient (BNV) | payer OTHER, SELFPAY | PROVIDERS: Visit Provider Radiology Diagnostic Radiology | DX: M79.12 Myalgia of auxiliary muscles, head and neck (principal) | CPT/HCPCS: 72040 ==

== ENCOUNTER → 2025-01-18 09:00 | Outpatient (BNV) | payer OTHER, SELFPAY | PROVIDERS: Visit Provider Psychiatry & Neurology Neurology | DX: R20.2 Paresthesia of skin (principal) | CPT/HCPCS: 95886; 95913 ==

== ENCOUNTER 2025-01-18 09:01 | Outpatient (REF) | payer OTHER, SELFPAY ==
--- NOTE | 2025-01-18 09:00 | EMG_ITS ---
Chief complaint: Right arm, face tingling and right leg paresthesia Reason for referral: Evaluate for peripheral neuropathy, radiculopathy Referred by: Luis Ryan NP Procedure done: Right upper extremity and Right lower extremity NCS and EMG Description: Right median and ulnar motor and sensory responses were obtained. Right radial sensory and median and lateral antecubital brachial sensory responses were obtained. Right tibial and peroneal motor studies were done and superficial peroneal and sural sensory studies were done a tibial H response was obtained. EMG needle examination was performed. There was mild slowing or right superficial peroneal response with decreased right peroneal motor amplitudes. Otherwise no significant abnormality was noted. 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 Otherwise no significant abnormality was noted. MTDD
--- OUTSIDE RECORDS SUMMARY | 2025-01-18 09:39 | XMS_ITS | Clinical Summary ---
Author Organization [facility] Address [address] [facility] [address] [place] [address] Phone Care Team Providers Care Celebrity Manager Name Role Phone Luis Ryan BREAST BUFFER Primary Care Provider Social History Tobacco Use Types Packs/Day Years Used Date Smoking Tobacco: Never Assessed Education Answer Date Recorded Are you interested in more education? Not on harmony e 01/04/2025 Are you concerned about learning? Not on file 01/04/2025 No 01/04/2025 No 01/04/2025 Digital Access Answer Date Recorded No 01/04/2025 No 01/04/2025 Reliable internet access at home? Not on file 01/04/2025 Device with a working camera? Not on file Sex and Gender Information Value Date Recorded Sex Assigned at Male 01/04/2025 12:10 PM EDT Legal Sex Male 11:42 AM EDT Gender Identity Male 01/04/2025 12:10 PM EDT Sexual Orientation Pansexual 01/04/2025 12 :10 PM EDT Plan of Treatment Upcoming Encounters Date Type Department Care Team ([facility] st Contact Info) Description 02/14/2025 1:20 PM EDT Office Visit [facility] Otolaryngology [address] [place] [address] ASB2-2 [place] [address] Kasi Murcia MD, DMD [address] [place] [address] [phone] [email or web address] Health Maintenance Due Date Last Done Comments Adult Td,Tdap Booster 2000 DEPRESSION SCREENING 2012 SMOKING Hx and SMOKELESS TOB ACCO SCREENING 02/08/2013 HPV VACCINES (1 - Male 3-dos e series) 02/08/2015 HEPATITIS C SCREENING 02/08/2018 HIV ONE-TIME SCREENING (18-6 5 YEARS) 02/08/2018 INFLUENZA VACCINE (#1) 2024 COVID-19 VACCINE (1 - 2023-2 5 season) 2024 HEPATITIS A VACCINES Aged Out No long er eligible based on patient's age to complete this topic HIB VACCINES Aged Out No longer eligi ble based on patient's age to complete this topic MENINGOCOCCAL VACCINES (ACWY) Aged Out No longer eligible based on patient's age to complete this topic MENINGOCOCCAL VACCINES (B) Aged Out N o longer eligible based on patient's age to complete this topic PNEUMOCOCCAL VACCINES (0-49 years) Aged Out No longer eligible based on patient's age to complete this topic Medical Devices Not on file Insurance [facility] PLAN [facility] PLAN [place] [id number] [facility] [place] [id number] [facility] [place] [id number] [facility] PLAN [facility] PLAN Care Teams Celebrity Manager Relationship Specialty Start Date End Date Luis Ryan NP [address] [place] [address] [address] [place] [address] PCP - General Nurse Practitioner 01/04/25 Additional Source Comments The information contained in this document represents components of the legal health record. It is not the complete legal health record.[facility]
--- OUTSIDE RECORDS SUMMARY | 2025-01-18 09:39 | XMS_ITS | Clinical Summary ---
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 Physical Therapy Department [address] [place] [address] Manseau, Nataliya, PT TMJ pain dysfunction syndrome (Primary Dx); Neck pain 12/08/2024 2:[address] [facility] Physical Therapy Department [address] [place] [address] Manseau, Nataliya, PT TMJ pain dysfunction syndrome (Primary Dx); Neck pain 11/29/2024 4:[address] [facility] Physical Therapy Department [address] [place] [address] Manseau, Nataliya, PT TMJ pain dysfunction syndrome (Primary Dx); Neck pain 11/10/2024 2:[address] [facility] Physical Therapy Department [address] [place] [address] Manseau, Nataliya, PT Neck pain (Primary Dx); TMJ pain dysfunction syndrome 10/20/2024 9:40 PM EDT - 10/20/2024 9:43 PM EDT Emergency [facility] Emergency Department [address] [place] [address] Discharge Disposition: Left Without Being Seen (07) [...] 11/16/2012, 02/18/2002 Insurance [employer] Care Teams Furniture Associate Relationship Specialty Start Date End Date Luis Ryan PA [address] [place] [id number] PCP - General 08/28/24
== END 2025-01-18 09:02 | disposition home or self-care (01) ==
LOC: HO.NEURO 09:01
DX: R20.2 Paresthesia of skin (principal); R20.0 Anesthesia of skin
CPT/HCPCS: 95886; 95913

== ENCOUNTER 2025-01-24 14:36 | Outpatient (AMB) | payer OTHER, SELFPAY ==
--- OUTSIDE RECORDS SUMMARY | 2025-01-19 17:25 | XMS_ITS | Encounter Summary ---
Author Organization [facility] Address [address] [place] [address] Care Team Providers Care Manager Business Management Name Role Phone Luis Ryan Primary Care Provider [phone] Reason for Visit * Reason Comments Jaw Pain Encounter Details Date Type Department Care Team (Late st Contact Info) Description 01/19/2025 5:25 PM EDT - 01/19/2025 6:43 PM EDT Emergency [facility] Emergency Department [address] [place] [id number] Discharge Disposition: Left Without Being Seen (07) Social History Tobacco Use Types Packs/Day Years [...] on file documented as of this encounter Last Filed Vital Signs Vital Sign Reading Time Taken Comments Blood Pressure 103/62 01/19/2025 3:45 PM EDT Pulse 74 01/19/2025 3:45 PM EDT Temperature 37 C (98.6 F) 01/19/2025 3:45 PM EDT Respiratory Rate 16 01/19/2025 3:45 PM EDT Oxygen Saturation 97% 01/19/2025 3:45 PM EDT Inhaled Oxygen Concentration - - Weight 63.5 kg (140 lb) 01/19/2025 3:45 PM EDT Height 188 cm (6' 2 ) 01/19/2025 3:45 PM EDT Body Mass Index 17.97 01/19/2025 3:45 PM EDT documented in this encounter Medications at Time of Discharge gabapentin (NEURONTIN) 100 mg capsule SMARTSI Capsule(s) By Mouth 3 Times Daily 01/04/2025 documented as of this encounter Plan of Treatment Not on file documented as of this encounter Visit Diagnoses Not on filedocumented in this encounter Care Teams Manager Business Management Relationship Specialty Start Date End Date Luis Ryan PA [address] [place] [id number] PCP - General 08/28/24 documented as of this encounter
[2025-01-24 15:01] VITALS: BP 120/70; PULSE 87; O2SAT 98; BMI 20.4
--- NOTE | 2025-01-24 15:01 | A.OFFVIS_ITS ---
Vital Signs 01/24/25 15:01 Height 5 ft 11 in Weight 146 lb BMI 20.4 BP 120/70 Blood Pressure Location Rt brachial Position Sitting Pulse 87 Pulse Source Pulse Oximeter Pulse Oximetry (%) 98 Oxygen Delivery Method Room Air Intake Visit Reasons: INP-Migraine Dye Weigher Helper Required: No Accompanied by: Self / Same As Patient Allergies No Known Allergies Allergy (Verified 01/24/25 15:05) Medication List - Last Reconciled 01/24/25 by JONG Fulton fluticasone propionate 50 mcg/actuation 2 sprays intranasal BID PRN 30 days gabapentin 100 mg PO TID HPI Comments Details: Left-handed 24-yr-old male presents for new patient evaluation of headache disorder. 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 Pt reports he has had worsening headaches since May 2024 without precipitating cause. He reports prior to the May 2024, he would have an occasional regular headache without photophobia, phonophobia, N/V. He reports in May, he started feeling like the right side of his body felt weaker. He had right-sided sciatica, which he attributes to sitting/driving for large portions of the day. He did PT, healthcare administrative assistant, muscle rubs, and adjusted his diet, however he states these did not really help the back issues much. He then states in September or October, he experienced his 1st ever true migraine attack, where he required an ER eval. He had normal head CT w/wo and normal basic labs. He had a positive response to a migraine cocktail, which reduced the pain behind the right eye, but caused profound sleepiness. He also feels the right shoulder is sitting forward. He feels like he does not have the same amount of strength in his right side as his left side, but he can lift heavier items. 01/18/2025, RUE and RLE EMG/NCS, showed mild right peroneal sensory and motor neuropathy. PMH and ROS are also notable for:? Childhood onset motion sickness Mild anemia TMJ pain/crepitus- actively undergoing tx w/ PT, dentist Right otitis media in July 2024- tx'd w/ course of augmentin. Neck pain Right low back pain w/ sciatica s/s- improved. Had [facility] ER eval in May 2024. Pertinent denials include: Denies h/o head injury, seizures, syncope, kidney stones, asthma Lifestyle considerations * Typical nutrition intake: tries to eat twice a day- tries to eat healthy * Typical fluid intake per day: 4-5 water bottle 16 oz of water per day * Caffeine use: 1 energy drink per day, and 2-3 energy drinks per day once a week. Prior to May, 2-3 energy a day plus water. * Sleep routine: Usual bedtime: 10pm on his usual work day , 11;30 pm to 1 am on double shift work days on /Fri/Fri, 3am on work days and wake-up time: 5am, but 9pm on days off * Sleep difficulties: Cannot take a nap, shakes his leg. Can be restless or have a jolting sensation if sitting for too long. 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 Loss of cervical lordosis. Possible [place] syndrome. * Previous labs * 06/12/2024, [facility]: H&H 13.5 & 39.5 low, Alk Phos 35 low. Typical headache characteristics * Prodrome symptoms: denies * Aura: 15 minutes before the onset of headache and nausea, starts tasting iron. Only once, in September/October 2024- he also had a gradual onset of right eye vision loss- like a large blotch and then could not see at all x's 15-30 minutes. * Pain intensity: severe * Location, quality, characteristics: stabbing/jabbing pain in the right retro- orbital and right supraorbital region, * Associated symptoms: photophobia, some allodynia, nausea, vomiting, external/internal spinning dizziness, lightheadedness, fatigue, restless/paced * Atypical associated symptoms: increased right nasal congestion * Postdrome: denies * Aggravating factors during this headache: electronic use, lights * Triggers that provoke this headache: becoming sick or has a marijuana hangover - states he no longer uses marijuana to this extent. * Time of day this headache usually occurs: No specific time of day * Duration and Frequency: 2-3 hours, usually resolves after a nap. In the past month, he has had 1-2 attacks. * Headache impact on the patient's quality of life: severe during attack Current treatment strategies * Current acute medication use/interventions: OTC NSAIDs * Current preventative medication use: Gabapentin 100mg 3 x's per day- ineffective * Current non-pharmacological interventions: PT for TMJ PFSH Medical History ADHD Surgical History History of wisdom tooth extraction Family History Other Diverticulosis Mental health disorder Substance use disorder Social History Housing: House Alcohol intake: never Patient Tobacco Use Status: Never used Tobacco e-Cigarette/Vaping Use: Never Used Second Hand Smoke Exposure: No Substance Use Type: Marijuana service: No Current occupational status: employed Current occupation: [employer] Cognitive needs: No Hearing needs: No Vision needs: No Review of Systems ENT Reports Normal hearing present Neuro Reports Normal hearing present Physical Exam Vital Signs: Last Vital Signs Pulse 87 01/24/25 15:01 BP 120/70 01/24/25 15:01 Pulse Ox 98 01/24/25 15:01 Oxygen Delivery Method Room Air 01/24/25 15:01 BMI result Body Mass Index 20.4 Const Orientation/consciousness: patient oriented x3 Resp Effort & Inspection: normal respiratory effort and able to speak in complete sentences Neuro Other: No palpable scalp tenderness. Mild lower facial asymmetry Uvula deviates to the left. Lower teeth crowding and tooth wearing TMJ displacement on open/close Bilateral posterior cervical tightness- mild Cervical ROM: full Left Spurling: normal Right Spurling: normal. Mild foot tapping, needs to sit/stand throughout the visit. Bilateral UE negative Siddiqi's. General: patient oriented x3 Cranial nerves: Yes Bilaterally intact EOM present, Yes Nystagmus not present, Yes Midline tongue present, Yes Normal hearing present, Yes Ability to bilaterally rotate head present and Yes Ability to bilaterally elevate shoulders present Cognition (Neuro): normal cognition Gait exam (Neuro): Normal gait present Motor exam (neuro): 5/5 motor strength present throughout Deep tendon reflexes (DTR's): Right triceps reflex intensity grade: 2+, Left triceps reflex intensity grade: 2+, Rt Biceps (C5, C6): 2+, Left biceps reflex intensity grade: 2+, Right brachioradialis reflex intensity grade: 2+, Left brachioradialis reflex intensity grade: 2+, Right patellar reflex intensity grade: 2+ and Left patellar reflex intensity grade: 2+ Coordination: [id number] test normal, tandem gait normal and Romberg test negative Pupils: Normal pupillary reactivity/response: bilateral Psych Appearance: grossly normal Mental Status: mental status grossly normal Speech and movement: Normal speech and movement present Affect: normal affect Attitude: cooperative Thought process: Normal thought process present Assessment & Plan Assessment & Plan (1) Worsening headaches: Code(s): R51.9 - Headache, unspecified Category: Medical (2) Sudden visual loss, right eye: Code(s): H53.131 - Sudden visual loss, right eye Category: Medical (3) Migraine: Code(s): G43.909 - Migraine, unspecified, not intractable, without status migrainosus Category: Medical Qualifiers: Migraine type: unspecified Status migrainosus presence: without status migrainosus Intractability: intractable Qualified Code(s): G43.919 - Migraine, unspecified, intractable, without status migrainosus Plan Discussion note Discussed that to r likely the headaches he has been experiencing, a/w gustatory aura and one isolated episode of unilateral vision changes, are most likely migraine with aura. However, as his symptoms have been worsening and are also associated with restlessness, gustatory aura, new onset visual change, and uvula deviation on exam, which raises concern for a TAC, facial pain, or secondary headache disorder such as a posterior fossa process, further investigation is warranted, including MRI brain w/wo, MRA head w/o, and MRV head. An EEG is also advised to assess for any indications of focal epileptic activity. In terms of treatment, per patient preference, we will initiate a conservative treatment plan until review of work-up You are advised to undergo the following: MRI brain with/without contrast MRA head without contrast MRV with/without contrast EEG Fasting lab work Will request full head CT report to assess for indications of Eagles Syndrome from [facility] Headache Management Tips Combining good self-care with some helpful tools can make managing headaches much easier. Healthy Habits * Eat a balanced diet * Drink enough water throughout the day, typically at least 64 oz of fluid per day * Get regular, adequate sleep consisting of 7-9 hours of sleep per night * Stay active with routine physical activity, typically at least 30 minutes 5 days per week * Stay connected with friends and family, enjoy meaningful activities, and take care of your mood Tracking Your Headaches * Write down when headaches happen, what helps, and any side effects of new treatments * Tracking is most important after changes in your treatment plan * Options: - Apps such as [employer] - A simple paper calendar Non-Medication Strategies * Light sensitivity: special glasses may help (blue-light or FL-41 filters, green lenses) or green-light therapy * Avoid wearing dark sunglasses indoors * Sound sensitivity: noise-canceling earplugs can reduce bothersome noise These strategies may not stop every attack, but over time, they can reduce headache frequency, intensity, and impact. For acute (as needed) headache treatment: It is important to take acute medications at the first sign of headache. How ever, please be aware that frequently using most acute medications may increase the frequency of your headache attacks, as well as make your other treatments less effective. * OTC Tylenol 650-1,000mg every 4-6 hours, Ibuprofen (liquid gels) 600mg every 6 hours, or Naproxen (liquid gels) 440mg q 12 hrs prn. Potential adverse effects of triptans, include but are not limited to nausea, fatigue, chest tightness/tingling (usually passes within a few minutes), medication overuse headaches. Previous acute migraine medication trials: none other Acute headache medication contraindications: None at this time Future considerations: triptan trial upon review of above results For headache prevention medication: Preventative medications should be taken routinely as prescribed for best effect, it may take several weeks for full effect to take effect. * Riboflavin up to 400mg daily in the morning * This is generally well tolerated, however some people may experience mild abdominal discomfort from use. * This will cause your urine to become bright yellow or orange, which is expected and not of any concern. * Magnesium up to 500mg daily at bedtime (or up to 250mg twice a day) * Magnesium comes in many subtypes, such as magnesium oxide, glycinate, citrate, and even try magnesium combinations. Additionally magnesium comes in many forms, including tablets, capsules, powders or even liquid formulations. There is not a specific magnesium subtype or form known to be significantly more effective than another. Rather, the magnesium subtype inform that you best tolerate, is the best version for you. * Possible side effects of magnesium include, but are not limited to, GI upset, abdominal cramping, loose stools, and diarrhea Previous headache prevention medication trials: Gabapentin 100mg tid- ineffective Migraine prevention medication contraindications: None at this time We will follow-up upon review of above and with a follow-up clinic visit in 3 months or sooner as needed. Orders: Orders MR angio head wo con 01/24/25 H53.131 - Sudden visual loss, right eye, Q67.0 - Congenital facial asymmetry, R51.9 - Headache, unspecified MR head/brain wo/w con 01/24/25 H53.131 - Sudden visual loss, right eye, Q67.0 - Congenital facial asymmetry, R51.9 - Headache, unspecified MR venography head wo/w con 01/24/25 H53.131 - Sudden visual loss, right eye, Q67.0 - Congenital facial asymmetry, R51.9 - Headache, unspecified Comprehensive [place]. Panel Fast Today D64.9 - Anemia, unspecified, M25.50 - Pain in unspecified joint, R20.2 - Paresthesia of skin, R51.9 - Headache, unspecified Erythrocyte Sedimentation Rate Today D64.9 - Anemia, unspecified, M25.50 - Pain in unspecified joint, R20.2 - Paresthesia of skin, R51.9 - Headache, unspecified C Reactive Protein Today D64.9 - Anemia, unspecified, E55.9 - Vitamin D deficiency, unspecified, M25.50 - Pain in unspecified joint, R20.2 - Paresthesia of skin, R51.9 - Headache, unspecified Syphilis Screen Today M25.50 - Pain in unspecified joint, R51.9 - Headache, unspecified Lyme IgG/IgM w/reflex to WB Today M25.50 - Pain in unspecified joint, R20.2 - Paresthesia of skin, R51.9 - Headache, unspecified IRON PROFILE Today D64.9 - Anemia, unspecified, R20.2 - Paresthesia of skin Vitamin B12 and Folate Today D64.9 - Anemia, unspecified, R20.2 - Paresthesia of skin, R51.9 - Headache, unspecified EEG Routine Today G43.919 - Migraine, unspecified, intractable, without status migrainosus, R29.818 - Other symptoms and signs involving the nervous system Complete Blood Count Auto Diff Today D64.9 - Anemia, unspecified, M25.50 - Pain in unspecified joint, R20.2 - Paresthesia of skin, R51.9 - Headache, unspecified LINDA Reflex Titer and Pattern Today M25.50 - Pain in unspecified joint, R20.2 - Paresthesia of skin, R51.9 - Headache, unspecified HIV Ab/Ag Today D64.9 - Anemia, unspecified, M25.50 - Pain in unspecified joint, R20.2 - Paresthesia of skin, R51.9 - Headache, unspecified Ferritin Today D64.9 - Anemia, unspecified Vitamin D 25-OH (D2 and D3) Today E55.9 - Vitamin D deficiency, unspecified Medications: New riboflavin (vitamin B2) 400 mg PO DAILY 90 tabs 3RF 90 days magnesium glycinate 400 mg (4 x 100 mg magnesium) PO BEDTIME 360 caps 3RF 90 days Coding Level of Care Code New Pt Level 4 (91887) Diagnoses Worsening headaches R51.9 Sudden visual loss, right eye H53.131 Intractable migraine without status migrainosus, unspecified migraine type G43.919 Migraine type: unspecified Status migrainosus presence: without status migrainosus Intractability: intractable
--- OUTSIDE RECORDS SUMMARY | 2025-01-24 17:04 | XMS_ITS | Clinical Summary ---
Author Organization [facility] Address [address] [facility] [address] [place] [address] Phone Care Team Providers Care Assembler Sandal Parts Name Role Phone Luis Ryan NURSING HOME ADMISSIONS DIRECTOR Primary Care Provider Social History Tobacco Use [...] Upcoming Encounters Date Type Department Care Team ([facility] st Contact Info) Description 02/14/2025 1:20 PM EDT Office Visit [facility] Otolaryngology [address] [place] [address] ASB2-2 [place] [address] Kasi Murcia MD, DMD [address] [place] [address] [phone] [email or web address] Health Maintenance Due Date Last Done Comments Adult Td,Tdap Booster 2000 DEPRESSION SCREENING 2012 SMOKING Hx and SMOKELESS TOB ACCO SCREENING 02/08/2013 HPV VACCINES (1 - Male 3-dos e series) 02/08/2015 HEPATITIS C SCREENING 02/08/2018 HIV ONE-TIME SCREENING (18-6 5 YEARS) 02/08/2018 INFLUENZA VACCINE (#1) 2024 COVID-19 VACCINE (1 - 2024-2 6 season) 2024 HEPATITIS A VACCINES Aged Out [...] topic Medical Devices Not on file Insurance [facility]AN [place] [id number] [facility] [place] [phone] [facility] [place] [phone] [facility] PLAN [facility] PLAN Care Teams Assembler Sandal Parts Relationship Specialty Start Date End Date Luis Ryan NP [address] [place] [address] [address] [place] [address] PCP - General Nurse Practitioner 01/04/25 Additional Source Comments The information contained in this document represents components of the legal health record. It is not the complete legal health record.[facility]
--- OUTSIDE RECORDS SUMMARY | 2025-01-24 17:04 | XMS_ITS | Clinical Summary ---
Author Organization [facility] [employer] [facility] lin Address [address] [place] [address] Care Team Providers Care Technical Instructor Course Developer Name Role Phone No, Pcp REDRAWER Primary Care Provider Unavailabl e Allergies No [...] Adults 18 yrs or above (or HM Modifier)([facility]) 02/08/2018 Hepatitis C Virus Infection in Adolescents and Adults: Screening (or Modifier) ([facility]) 02/08/2018 SDOH Screening Reminder: Karie eden for all adults ([facility]) 02/08/2018 Tobacco Smoking Cessation: i n Adults excluding Women: Behavioral and Pharmacotherapy Interventions ([facility]) 02/08/2018 DTaP/Tdap/Td Vaccines ([facility]) (1 - Tdap) 02/08/2019 Flu Vaccination: Yearly for ages 18mos through 64 years (or Modifier)([facility]) 11/19/2024 COVID-19 Vaccine Screening: Initial Series and Booster Status ([facility]) ( - 2023- season) 2024 Zoster/Shingles Vaccine Seri es Screening: Adults aged 18+ yrs (or HM Modifiers)([facility]) (1 of 2) 02/08/2050 Pneumococcal Vaccination Scr eening: Pts 0-19 & 19-49 yrs of age ([facility]) Aged Out No longer eligible based on patient's age to complete this topic [employer] Not on file Care Teams Technical Instructor Course Developer Relationship Specialty Start Date End Date No, Pcp, REDRAWER N/A Do not use PCP - General 11/08/14
--- OUTSIDE RECORDS SUMMARY | 2025-01-24 17:04 | XMS_ITS | Clinical Summary ---
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 Short stature 11/29/2014 ADHD (attention deficit hyperactivity disorder) 11/29/2014 Bipolar I disorder, most recent episode depresse d 09/08/2014 Encounters Date Type Department Care Team Description 01/19/2025 5:25 PM EDT - 01/19/2025 6:43 PM EDT Emergency [facility] Emergency Department [address] [place] [address] Discharge Disposition: Left Without Being Seen (07) 12/13/2024 12:00 PM EDT Evaluation [facility] Physical Therapy Department [address] [place] [id number] Manseau, Nataliya, PT TMJ pain dysfunction syndrome (Primary Dx); Neck pain 12/08/2024 2:45 PM EDT Treatment [facility] Physical Therapy Department [address] [place] [id number] Manseau, Nataliya, PT TMJ pain dysfunction syndrome (Primary Dx); Neck pain 11/29/2024 4:00 PM EDT Treatment [facility] Physical Therapy Department [address] [place] [address] Manseau, Nataliya, PT TMJ pain dysfunction syndrome (Primary Dx); Neck pain 11/10/2024 2:30 PM EDT Evaluation [facility] Physical Therapy Department [address] [place] [address] Manseau, Nataliya, PT Neck pain (Primary Dx); TMJ pain dysfunction syndrome from Last 3 Months Immunizations Immunization Administration [...] Mass Index 17.97 01/19/2025 3:45 PM EDT Plan of Treatment Health Maintenance Due Date Last Done Comments HIV Screening 2000 Hepatitis C Screening 2000 HPV Vaccines (3 - Male 3-dose series) 06/18/2017 02/19/2017, 12/18/2016 Alcohol/Substance Use Screening 04/21/2024 Depression Screening and Follow-Up 04/21/2024 Social Drivers of Health Annual Screening 04/21/2024 COVID-19 Vaccine ( season) 2024 Influenza Vaccine (#1) 2024 12/18/2016 [...] topic Varicella Vaccines Completed 11/16/2012, 02/18/2002 Insurance [facility] Care Teams Professor Of Physical Education Relationship Specialty Start Date End Date Luis Ryan PA [address] [place] [id number] PCP - General 08/28/24
== END 2025-01-25 10:02 | disposition home or self-care (01) ==
LOC: HO.HSMS 14:37
PROVIDERS: Visit Provider Nurse Practitioner Family
DX: R51.9 Headache, unspecified (principal); H53.131 Sudden visual loss, right eye; G43.919 Migraine, unspecified, intractable, without status migrainosus
CPT/HCPCS: 99204

== ENCOUNTER 2025-02-28 14:12 | Outpatient (AMB) | payer OTHER, SELFPAY ==
--- OUTSIDE RECORDS SUMMARY | 2025-02-23 14:57 | XMS_ITS | Encounter Summary ---
Author Organization [facility] Address [address] [place] [address] Care Team Providers Care Substation Operator Automatic Name Role Phone Luis Ryan Primary Care Provider [phone] Reason for Visit * Reason Comments Abdominal Pain Chest Pain Encounter Details Date Type Department Care Team (Late st Contact Info) Description 02/23/2025 2:57 PM EST - 02/23/2025 5:31 PM EST Emergency [facility] Emergency Department [address] [place] [id number] Chest pain, unspecified type (Primary Dx) Discharge Disposition: Home or Self Care () Social History Tobacco Use Types Packs/Day Years [...] Sign Reading Time Taken Comments Blood Pressure 134/90 02/23/2025 2:43 PM EST Pulse 97 02/23/2025 2:43 PM EST Temperature 37.2 C (98.9 F) 02/23/2025 2:43 PM EST Respiratory Rate 19 02/23/2025 2:43 PM EST Oxygen Saturation 96% 02/23/2025 2:43 PM EST Inhaled Oxygen Concentration - - Weight 63.5 kg (140 lb) 02/23/2025 2:43 PM EST Height 185.4 cm (6' 1 ) 02/23/2025 2:43 PM EST Body Mass Index 18.47 02/23/2025 2:43 PM EST documented in this encounter Discharge Instructions * Discharge Instructions* GILLIAN Guevara - 02/23/2025 5:09 PM EST You were evaluated in the emergency room today for concern of chest pain. In the emergency room, weperformed chest x-ray, EKG and basic blood work which was overall reassuring without any concerningabnormalities. At this time, we do believe you are safe and stable for discharge home. For continued pain or discomfort, you may take scheduled alternating doses of ibuprofen 400 mg and mg every 4-6 hours. You may also apply the topical lidocaine patch with prescribed to you 12 hours on and 12 hours off as needed. You should follow-up promptly patient with your PCP for reevaluation and further management. If after discharge, you develop any new or worsening symptoms, please donot hesitate to return to the emergency room for reevaluation. * Attachments The following attachments cannot be sent through Care Everywhere. * Chest pain in adults ??? ED discharge instructions (Cymro) documented in this encounter Medications at Time of Discharge gabapentin (NEURONTIN) 100 mg capsule SMARTSI Capsule(s) By Mouth 3 Times Daily 01/04/2025 lidocaine (LIDODERM) 5% patch Apply 1 patch topically to the affected area once a day for 10 days. Remove and discard patch within 12 hours or as directed. 10 patch 02/23/2025 documented as of this encounter ED Notes * GILLIAN Guevara - 02/23/2025 2:15 PM EST History HPI: Chief Complaint Patient presents with Abdominal Pain Chest Pain HPI Please see MDM for HPI. Patient History Past Medical History: Diagnosis Date Personal history of other diseases of urinary system History of urethral stricture 2014-12-09 No past surgical history on file. Family History Problem Relation Age of Onset Other Other Family history of Anxiety Other Father Family history of Anxiety Other Mother Family history of Anxiety Social History Tobacco Use Smoking status: Never Smokeless tobacco: Never Tobacco comments: : Substance Use Topics Alcohol use: Not Currently Drug use: Yes Types: Marijuana Sexuality and Gender Identity Sexuality Legal Information Legal first name: Bakari Legal last name: Katelyn Legal sex: Male Gender Identity Patient's gender identity: Male Patient's sex assigned at : Male Organ Inventory Organs the patient currently has: Organs present at or expected at to develop: Organs surgically enhanced or constructed: Organs hormonally enhanced or developed: breasts cervix ovaries uterus vagina penis prostate testes Review of Systems REVIEW OF SYSTEMS: ROS negative except as described in HPI. Physical Exam Physical Exam ED Triage Vitals [02/23/25 1443] Temp Heart Rate Resp BP SpO2 37.2 ??C (98.9 ??F) 97 19 134/90 96 % Temp Source Heart Rate Source Patient Position BP Location Set FiO2 (O2%) Temporal -- Sitting Right arm -- Physical Exam CONSTITUTIONAL: The patient is well appearing, well nourished, in no acute distress. Vital signs asdocumented. HEENT: Head atraumatic, normocephalic. NECK: Trachea midline, with no obvious masses or abnormalities. PULM: Chest with symmetric movement and normal appearance. Lungs CTAB, no w/r/r. Non-labored work of breathing. CARDIAC: Regular rhythm, S1/S2 appreciated, with no murmurs, rubs, or gallops. Radial pulses 2+ bilaterally, cap rf <2sec. ABDOMEN: Soft/non-tender to palpation in all 4 quadrants, no palpable masses. BACK: Normal alignment, normal inspection. No CVAT bilaterally. EXTREMITIES: No lower extremity edema or calf tenderness bilaterally. Full non- painful active ROM in bilateral upper and lower extremities. NEURO: Alert and oriented x3, CN II-XII appear grossly intact. Speech clear and appropriate. PSYCH: Appropriate behavior, affect, and mood. SKIN: Warm, dry, and pink, with normal turgor. No rashes or lesions noted. Medical Decision Making and ED Course MDM HPI: Patient is a 25-year-old male with past medical history of sciatic back pain presenting to theemergency room complaining of right parasternal sharp chest pain onset yesterday. Denies any traumaor straining injury recently sustained. Endorses some associated shortness of breath. Denies recentcough, fever, sinus congestion, however with a mild sore throat recently. Patient denies any lower extremity swelling, calf tenderness, recent surgeries, prolonged periods of immobilization, familialcoagulopathies, hemoptysis. Denies palpitations. Denies association with prandial intake. Denies inspiratory exacerbation. Denies exacerbation with exertion. Otherwise denies nausea, emesis, diarrhea, melena, hematochezia, dysuria, flank pain. Chest pain is reproducible to palpation. Social Factors Impacting Care: None reported. Labs: CBC without leukocytosis/leukopenia, anemia, thrombocytosis/leukocytopenia. CMP without clinically significant electrolyte abnormality, renal and hepatic function within limits. Lipase 29, WNL.Troponin 6, WNL. Viral swabs negative for influenza, COVID-19, RSV. Imaging: Chest x-ray without focal consolidation to suggest pneumonia, also without pneumothorax orpleural effusion. Other Evaluations: My independent interpretation of EKG, no evidence of STEMI or STEMI equivalent, normal sinus rhythm with VR 69, ND 158, QRS 90, QTc 370, normal axis, hyperacute T waves in leads [id number] V6. Differential Dx: ACS vs Primary Cardiac Arrythmia vs Pneumothorax vs Costochondritis vs Pleuritis Interventions: Administered 15 mg ketorolac IV. Disposition: Patient overall well-appearing, nontoxic, and hemodynamically stable. Patient is a 25 y/o M with cardiac risk factors as documented above, complaining of chest pain. EKG nonischemic and troponin reassuring against ACS. No primary cardiac rhythm on EKG. No tachypnea, saturating well on RA, no signs of DVT all argue against PE, and considerably low risk per PERC criteria. Radial pulsesequal bilaterally, denies history of vasculopathy, pain is not tearing in nature, which does not support diagnosis of dissection. Clear breath sounds bilaterally and normal O2 sats along with absenceof cough argue against PTX or PNA, but obtain chest x-ray without acute cardiopulmonary abnormality. No history of medication or drug use concerning for coronary vasospasm but will check Troponin. Nofriction rub on exam or EKG findings to support diagnosis of pericarditis. Pain is not reproducibleand no recent history of significant exertion helps to exclude musculoskeletal pain. Denies recent illness or intravenous drug use or risk factors for endocarditis. Overall reassuring workup without any acute or life-threatening etiology of patient symptoms. Most likely this is a musculoskeletal strain versus costochondritis, and will encourage supportive care measures and close outpatient follow-up to PCP. Patient is in agreement with this plan. Educated on supportive care, strict return precau tions. Midlevel/AMANDA to Attending - Chart by OVERHEAD FOREMAN/PA. Attending Dr. Graham Darden, was actively involved. Bakari Zepeda : 2000 CSN: [id number] GILLIAN Guevara 02/23/25 1707 Cosigned by Graham Darden MD at 02/24/2025 7:14 PM EST Associated attestation - Graham Darden MD - 02/24/2025 7:14 PM EST I saw, examined and evaluated the patient, discussed the case with the resident/fellow/AMANDA and agree with the findings and plan as documented in the record. Haynes elements, clarifications and/or exceptions are noted by me. I am responsible for a substantial portion of the medical decision making which included a review of the patient's condition, diagnostic tests, and approving the treatment plan. Bakari Zepeda : 2000 CSN: [id number] documented in this encounter Plan of Treatment Not on file documented as of this encounter Procedures * Due to [place] state law, this organization might not be sharing negative HIV tests. Procedure Name Priority Date/Time Associated Diagnosis Comments TROPONIN T HIGH SENSITIVITY STAT 02/23/2025 4:16 PM EST RAPID COVID-19, FLU A, FLU B & RSV RNA PCR, SYMPTOMATIC (ED ONLY) STAT 02/23/2025 4:16 PM EST CBC AUTO DIFFERENTIAL STAT 02/23/2025 4:16 PM EST LIPASE STAT 02/23/2025 4:16 PM EST COMPREHENSIVE METABOLIC PANEL STAT 02/23/2025 4:16 PM EST XR CHEST 2 VW STAT 02/23/2025 4:04 PM EST ECG 12-LEAD STAT 02/23/2025 2:48 PM EST documented in this encounter Results * Due to [place] state law, this organization might not be sharing negative HIV tests. * Rapid COVID-19, FLU A, FLU B & RSV RNA PCR, Symptomatic (ED ONLY) (02/23/2025 4:16 PM EST) [facility] PCR, SARS CoV-2 RNA Not Detected Not Detected CEPHEID GENEXPERT 02/23/2025 5:04 PM EST [facility] Flu A RNA PCR Not Detected Not Detected CEPHEID GENEXPERT 02/23/2025 5:04 PM EST [facility] Flu B RNA PCR Not Detected Not Detected CEPHEID GENEXPERT 02/23/2025 5:04 PM EST [facility] RSV RNA PCR Not Detected Not Detected CEPHEID GENEXPERT 02/23/2025 5:04 PM EST [facility] Comment: Limitations: This RSV test is suitable for the pediatric population (less than 19 years of age) only. Performance characteristics have not been established for use with patients older than 19 years of age and immunocompromised patients. Test results must be evaluated in conjuction with other clinical data available to the physician. Swab (Nares) Non-Blood Collection / Unknown 02/23/2025 4:16 PM EST 02/23/2025 4:21 PM EST [facility] - 02/23/2025 5:04 PM EST Methodology: The Functional Neuromodulation GeneXpert CoV-2/Flu/RSV plus assay is For Use Under an Emergency Use Authorization (EUA) Only with [employer] [facility]. The CoV-2/Flu/RSV plus assay is a rapid, multiplexed real-time RT-PCR assay intended for the simultaneous qualitative detection and differentiation of RNA from SARS-CoV-2, influenza A, influenza B, and Respiratory Syncytial Virus (RSV) in specimens collected from individuals suspected of a respiratory viral infection, by their healthcare provider. A positive test result for SARS-CoV-2, influenza or RSV indicates that RNA from that virus was detected. A negative test result indicates that RNA virus was not present in the specimen above the limit of detection. Therefore, a negative result does not rule out SARS-CoV-2, influenza or RSV infection and should not be used as the sole basis for treatment or other patient management decisions. [facility] BODY FLUIDS AND STOOLS ORDERABLES Final Result Performing Organization Address [facility] Co de Phone Number [facility] [address] [address], [place] [phone] * Troponin T, High Sensitivity (02/23/2025 4:16 PM EST) [facility] Troponin T High Sensitivity 6 6 - 22 ng/L 02/23/2025 4:47 PM EST [facility] Comment: Xz-Uhqxwils-D level of 52 ng/L or higher at 0-hour at presentation is recommended by the ESC 0/1-hour algorithm for identifying patients at high risk for ruling in acute myocardial infarction (AMI) in the appropriate clinical context. Repeat troponin testing 1-3 hours after the initial sample may be helpful in assessing for ongoing myocardial injury. Troponin elevations can be seen in several other non-infarct conditions, and the change (delta) should be evaluated in line with the 4th [place] Definition of AMI. Troponin baseline and serial elevation for a significant delta should be interpreted with clinical presentation, history, signs and symptoms, ECG, and biomarker concentrations. For inpatient setting: Value <12ng/L is considered negative for all genders. 0-1hr: A delta change of <3 will be considered negative/flat if chest pain onset >3 hours 0-3hr: A delta change of <7 will be considered negative/flat Blood Structure of peripheral vein / Unknown Venipuncture / Unknown 02/23/2025 4:16 PM EST 02/23/2025 4:21 PM EST [facility] BLOOD ORDERABLES Final Result Performing Organization Address [facility] Co de Phone Number [facility] [address] [address], [place] [phone] * Lipase (02/23/2025 4:16 PM EST) Lipase 29 13 - 60 U/L 02/23/2025 4:47 PM EST [facility] Blood Structure of peripheral vein / Unknown Venipuncture / Unknown 02/23/2025 4:16 PM EST 02/23/2025 4:21 PM EST [facility] BLOOD ORDERABLES Final Result [facility] [address] [address], [place] [phone] * Comprehensive Metabolic Panel (02/23/2025 4:16 PM EST) NA 139 136 - 145 mmol/L 02/23/2025 4:47 PM EST [facility] K 4.1 3.5 - 5.1 mmol/L 02/23/2025 4:47 PM EST [facility] Cl 103 97 - 110 mmol/L 02/23/2025 4:47 PM EST [facility] CO2 24 22 - 32 mmol/L 02/23/2025 4:47 PM EST [facility] Anion Gap 16 >=0 02/23/2025 4:47 PM EST [facility] Glucose 89 60 - 99 mg/dL 02/23/2025 4:47 PM EST [facility] Creatinine 0.97 0.50 - 1.12 mg/dL 02/23/2025 4:47 PM EST [facility] Calcium 9.7 8.4 - 10.4 mg/dL 02/23/2025 4:47 PM EST [facility] Total Protein 7.1 6.6 - 8.7 g/dL 02/23/2025 4:47 PM EST [facility] Albumin 4.7 3.5 - 5.0 g/dL 02/23/2025 4:47 PM EST [facility] Bilirubin, Total 0.5 0.2 - 1.2 mg/dL 02/23/2025 4:47 PM EST [facility] Alkaline Phosphatase 45 40 - 129 U/L 02/23/2025 4:47 PM EST [facility] AST 22 0 - 40 U/L 02/23/2025 4:47 PM EST [facility] ALT 16 <=41 U/L 02/23/2025 4:47 PM EST [facility] BUN 14 6 - 20 mg/dL 02/23/2025 4:47 PM EST [facility] eGFR >90 >=60 mL/min/1. 73m2 02/23/2025 4:47 PM EST [facility] Comment:The estimated glomer ular filtration rate [...] Globulin, Total 2.4 2.1 - 4.2 g/dL 02/23/2025 4:47 PM EST [facility] A/G Ratio 2.0 1.5 - 3.0 02/23/2025 4:47 PM EST [facility] Blood Structure of peripheral vein / Unknown Venipuncture / Unknown 02/23/2025 4:16 PM EST 02/23/2025 4:21 PM EST us [facility] BLOOD ORDERABLES Final Result [facility] [address] [facility] [address] [place] [address], * (ABNORMAL) CBC Auto Differential (02/23/2025 4:16 PM EST) Pathologist [facility] WBC 6.4 4.8 - 10.8 10*3/uL 02/23/2025 4:24 PM EST [facility] RBC 4.56(L) 4.70 - 6.10 10*6/uL 02/23/2025 4:24 PM EST [facility] Hemoglobin 13.8 13.7 - 16.5 g/dL 02/23/2025 4:24 PM EST [facility] Hematocrit 39.3(L) 40.5 - 48.5 % 02/23/2025 4:24 PM EST [facility] MCV 86.2 80.0 - 94.0 fL 02/23/2025 4:24 PM EST [facility] MCH 30.3 26.0 - 34.0 pg 02/23/2025 4:24 PM EST [facility] MCHC 35.1 31.0 - 36.0 g/dL 02/23/2025 4:24 PM EST [facility] RDW 12.4 12.0 - 15.0 % 02/23/2025 4:24 PM EST [facility] RDW Standard Deviation 39.6 35.1 - 43.9 fL 02/23/2025 4:24 PM EST [facility] Platelets 284 140 - 440 10*3/uL 02/23/2025 4:24 PM EST [facility] MPV 8.9(L) 9.4 - 12.4 fL 02/23/2025 4:24 PM EST [facility] Neutrophil % 54.9 50.0 - 75.0 % 02/23/2025 4:24 PM EST [facility] Immature Grans % 0.2 0.0 - 0.9 % 02/23/2025 4:24 PM EST [facility] Lymphocyte % 31.0 20.0 - 44.0 % 02/23/2025 4:24 PM EST [facility] Monocyte % 7.9 0.0 - 14.0 % 02/23/2025 4:24 PM EST [facility] Eosinophil % 4.7 0.0 - 5.0 % 02/23/2025 4:24 PM EST [facility] Basophil % 1.3 0.0 - 2.0 % 02/23/2025 4:24 PM EST [facility] Neutrophil # 3.50 1.80 - 7.70 10*3/uL 02/23/2025 4:24 PM EST [facility] Immature Grans # <0.03 0.00 - 0.03 10*3/uL 02/23/2025 4:24 PM EST [facility] Lymphocyte # 2.00 1.00 - 4.75 10*3/uL 02/23/2025 4:24 PM EST [facility] Monocyte # 0.50 0.00 - 0.60 10*3/uL 02/23/2025 4:24 PM EST [facility] Eosinophil # 0.30 0.00 - 0.80 10*3/uL 02/23/2025 4:24 PM EST [facility] Basophil # 0.10 0.00 - 0.20 10*3/uL 02/23/2025 4:24 PM EST [facility] nRBC % 0.0 0 - 0 /100 WBCs 02/23/2025 4:24 PM EST [facility] nRBC # <0.01 0.00 - 0.13 10*3/uL 02/23/2025 4:24 PM EST [facility] Blood Structure of peripheral vein / Unknown Venipuncture / Unknown 02/23/2025 4:16 PM EST 02/23/2025 4:21 PM EST us [facility] BLOOD ORDERABLES Final Result [facility] [address] [place] [address] [address] [place] [address], * X-Ray Chest 2 Views (02/23/2025 4:04 PM EST) Anatomical Region Laterality Modality Body Radiographic Janette ging 02/23/2025 4:13 PM EST Impressions 02/23/2025 4:13 PM EST No consolidation, pleural effusion, or pneumothorax. Normal heart size. No pulmonary vascular congestion. No acute displaced fracture identified. If this radiology report contains a blank impression section, it is an incomplete radiology report. Please contact the interpreting radiologist or applicable radiology division as soon as possible to obtain the completed interpretation. Workstation ID: [id number] Narrative 02/23/2025 4:13 PM EST REASON FOR EXAM: Chest pain COMPARISON: None FINDINGS AND Resulting Agency Comment [id number] Procedure Note Yamil Ortega MD - 02/23/2025 REASON FOR EXAM: Chest pain COMPARISON: None FINDINGS AND IMPRESSION: No consolidation, pleural effusion, or pneumothorax. Normal heart size.No pulmonary vascular congestion. No acute displaced fracture identified. If this radiology report contains a blank impression section, it is anincomplete radiology report. Please contact the interpreting radiologistor applicable radiology division as soon as possible to obtain thecompleted interpretation. Workstation ID: [id number] [facility] XR PROCEDURES Final Res ult * ECG 12 lead (02/23/2025 2:48 PM EST) Ventricular Rate EKG 69 BPM MUSE EKG Atrial Rate 69 BPM MUSE EKG ND Interval 158 ms MUSE EKG QRS Interval 90 ms MUSE EKG QT Interval 346 ms MUSE EKG QTC Interval 370 ms MUSE EKG P Garber 62 degrees MUSE EKG R Garber 97 degrees MUSE EKG T Wave Garber 42 degrees MUSE EKG 02/23/2025 2:48 PM EST 02/23/2025 5:14 PM EST Impressions MUSE EKG - 02/23/2025 5:14 PM EST Normal sinus rhythm with sinus arrhythmia Rightward axis Early repolarization Confirmed by Natali Gonzalez ([id number]) on 02/23/2025 5:14:19 PM Narrative Procedure Note Natali Gonzalez MD - 02/23/2025 IMPRESSION: Normal sinus rhythm with sinus arrhythmia Rightward axis Early repolarization Confirmed by Natali Gonzalez ([id number]) on 02/23/2025 5:14:19 PM Manfred Amanda MD ECG ORDERABLES Final Result MUSE EKG documented in this encounter Visit Diagnoses Diagnosis Chest pain, unspecified type- Primary documented in this encounter Administered Medications Inactive Administered Medications - up to 3 most recent administrations Medication Order MAR Action Action Date Dose Rate Site ketorolac (TORADOL) injection 15 mg 15 mg, intravenous, Once, On Fri02/23/25 at 1545, 1 dose Given 02/23/2025 4:39 PM EST 15 mg documented in this encounter Active and Recently Administered Medications Times are shown in EST. Scheduled Medication Order 02/21/2025 02/22/2025 02/23/2025 ketorolac (TORADOL) injection 15 mg (COMPLETED) 15 mg, intravenous, Once, On Fri02/23/25 at 1545, 1 dose 1639 (Given - Provid er: Jhonny Frost RN) documented in this encounter Additional Health Concerns Infection Onset Date Last Indicated Resolved Time R/O Respiratory Virus Infection 02/23/2025 02/23/2025 5:04 PM EST R/O Influenza 02/23/2025 02/23/2025 02/23/2025 5:0 4 PM EST COVID-19 - Suspected infection 02/23/2025 02/23/2025 02/23/2025 5:04 PM EST documented as of this encounter Care Teams Substation Operator Automatic Relationship Specialty Start Date End Date Luis Ryan PA [address] [place] [address] PCP - General 08/28/24 documented as of this encounter
[2025-02-28 14:35] VITALS: BP 112/70; PULSE 63; TEMP 36.3; O2SAT 98; BMI 21.5
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
--- OUTSIDE RECORDS SUMMARY | 2025-02-28 16:34 | XMS_ITS | Encounter Summary ---
Author Organization [facility] Address [address] [place] [address] [place] [phone] Phone Care Team Providers Care Industrial Health Engineer Name Role Phone Luis Ryan BODY RECALL INSTRUCTOR Primary Care Provider Encounter Details Date Type Department Care Team (Late st Contact Info) Description 02/14/2025 Procedure Pass [facility] CT Imaging, [place] [address] [place] [address] Social History Tobacco Use Types Packs/Day Years Used Date Smoking Tobacco: Never Smokeless Tobacco: Never Education Answer Date Recorded Are you interested [...] Orientation Pansexual 01/04/2025 12 :10 PM EDT documented as of this encounter Plan of Treatment Not on file documented as of this encounter Visit Diagnoses Not on filedocumented in this encounter Care Teams Industrial Health Engineer Relationship Specialty Start Date End Date Luis Ryan NP [address] [place] [address] Dr [address] [place] [address] PCP - General Nurse Practitioner 01/04/25 documented as of this encounter Additional Source Comments The information contained in this document represents components of the legal health record. It is not the complete legal health record.[facility]
--- OUTSIDE RECORDS SUMMARY | 2025-02-28 16:34 | XMS_ITS | Encounter Summary ---
Author Organization [facility] Address [address] [place] [address] [place] [phone] Phone Care Team Providers Care Control Room Tender Name Role Phone Luis Ryan VINYL CUTTER Primary Care Provider Encounter Details Date Type Department Care Team ([facility] st Contact Info) Description 02/28/2025 Telephone [facility] Otolaryngology [address] [place] [phone] Kasi Murcia MD, DMD [address] [place] [phone] [email or web address] Social History Tobacco Use Types Packs/Day Years [...] PM EDT documented as of this encounter Progress Notes * Adelaida Vasquez CNP - 02/28/2025 3:57 PM EST Re: CT scan I spoke with Bakari. He recently had a CT scan. We reviewed that there were no suspicious masslike lesion or lymphadenopathy within the neck. There was mineralization of the bilateral, left greater than right, stylohyoid ligament. We discussed that an email was sent to Dr. Crowe for his interpretation of the CT findings and recommendation regarding next steps. Once our team hears back we will provide pt with an update. Pt agreed with plan. He knows to call our office for any questions of concerns in the meantime. * Silvia Episcopalian - 02/28/2025 3:35 PM EST ORL IMAGE REVIEW/RESULTS 02/28/2025 3:35 PM Patient: Bakari Zepeda Kasi Murcia MD, DMD Date of last encounter in Otolaryngology: 02/14/2025 REQUESTED RESULTS: CT neck Note: patient wondering if Dr. Murcia has reviewed this and what next steps would be? DATE OF TEST: 02/21 LAST OV IMPRESSION/PLAN: Impression/Plan: He is a 25 y.o. 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 I explained to him this is a diagnosis of exclusion. Many problems can have overlapping symptoms. I did explain that symptoms related to Weld syndrome may overlap TMJ. Since he was diagnosed with TMJ and treated but without benefit there is a good chance he may have a Weld syndrome. I have recommended a CT scan of the neck which will give us a more complete evaluation. I did explain to him if he does have Weld syndrome the treatment is removal of the styloid and the stylohyoid ligament. However, sometimes is very difficult to be absolutely sure whether all the symptoms will resolve, some of the symptoms will resolve or none of them. If he feels his symptoms bother his quality life enough he should then consider it if it supported by the scan. ? Total time spent on 02/14/2025 for this visit in [id number] and non [id number] time reviewing, documenting, and obtaining, clinical information, coordinating with the care team and/or other specialists, and counseling the patient: 45 minutes. documented in this encounter Plan of Treatment Not on file documented as of this encounter Visit Diagnoses Not on filedocumented in this encounter Care Teams Control Room Tender Relationship Specialty Start Date End Date Luis Ryan NP [address] [place] [address] Dr [address] [place] [address] PCP - General Nurse Practitioner 01/04/25 documented as of this encounter Additional Source Comments The information contained in this document represents components of the legal health record. It is not the complete legal health record.[facility]
--- OUTSIDE RECORDS SUMMARY | 2025-02-28 16:34 | XMS_ITS | Clinical Summary ---
Author Organization [facility] Address [address] [place] [address] Care Team Providers Care Software Asset Management Analyst Name Role Phone Luis Ryan Primary Care Provider [phone] Allergies No known active allergies Medications gabapentin (NEURONTIN) 100 mg capsule SMARTSI Capsule(s) By Mouth 3 Times Daily 5 Active lidocaine (LIDODERM) 5% patch Apply 1 patch topically to the affected area once a day for 10 days. Remove and discard patch within 12 hours or as directed. 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 Short stature 11/29/2014 ADHD (attention deficit hyperactivity disorder) 11/29/2014 Bipolar I disorder, most recent episode depresse d 09/08/2014 Encounters Date Type Department Care Team Description 02/23/2025 2:57 PM EST - 02/23/2025 5:31 PM EST Emergency [facility] Emergency Department [address] [place] [address] Chest pain, unspecified type (Primary Dx) Discharge Disposition: Home or Self Care () 01/19/2025 5:25 PM EDT - 01/19/2025 6:43 PM EDT Emergency [facility] Emergency Department [address] [place] [address] Discharge Disposition: Left Without Being Seen () 12/13/2024 12:00 PM EDT Evaluation [facility] Physical Therapy Department [address] [place] [id number] Manseau, Nataliya, PT TMJ pain dysfunction syndrome (Primary Dx); Neck pain 12/08/2024 2:45 PM EDT Treatment [facility] Physical Therapy Department [address] [place] [id number] Manseau, Nataliya, PT TMJ pain dysfunction syndrome (Primary Dx); Neck pain 11/29/2024 4:00 PM EDT Treatment [facility] Physical Therapy Department [address] [place] [id number] Manseau, Nataliya, PT TMJ pain dysfunction syndrome (Primary Dx); Neck pain from Last 3 Months Immunizations Immunization Administration [...] Mass Index 18.47 02/23/2025 2:43 PM EST Plan of Treatment Health Maintenance Due Date [...] 09/06/2034 09/06/2024, 11/16/2012, 11/06/2004, Additional history exists Hepatitis B Vaccines Completed 2000, 2000, 2000 Pneumococcal Vaccine: Pediatric (0-5 Years) and At-Risk Patients (6-50 Years) Aged Out 06/04/2001, 06/04/2001, 02/04/2001, Additional history exists No longer eligible based on patient's age to complete this topic Varicella Vaccines Completed 11/16/2012, 02/18/2002 Procedures * Due to [place] [employer] law, this organization might not be sharing negative HIV tests. Procedure Name Priority Date/Time Associated Diagnosis Comments RAPID COVID-19, FLU A, FLU B & RSV RNA PCR, SYMPTOMATIC (ED ONLY) STAT 02/23/2025 4:16 PM EST TROPONIN T HIGH SENSITIVITY STAT 02/23/2025 4:16 PM EST LIPASE STAT 02/23/2025 4:16 PM EST COMPREHENSIVE METABOLIC PANEL STAT 02/23/2025 4:16 PM EST CBC AUTO DIFFERENTIAL STAT 02/23/2025 4:16 PM EST XR CHEST 2 VW STAT 02/23/2025 4:04 PM EST ECG 12-LEAD STAT 02/23/2025 2:48 PM EST from Last 3 Months Results * Due to [place] [employer] law, this organization might not be sharing negative HIV tests. * Troponin T, High Sensitivity (02/23/2025 4:16 PM EST) Troponin T High Sensitivity 6 6 - 22 ng/L 02/23/2025 4:47 PM EST [facility] Comment: Yl-Qjzifgyk-L level of 52 ng/L or higher at [...] be evaluated in line with the 4th [place] Definition of AMI. Troponin baseline and serial [...] [facility] BLOOD ORDERABLES Final Result [address] [place] [address], * Rapid COVID-19, FLU A, FLU B & RSV RNA PCR, Symptomatic (ED ONLY) (02/23/2025 4:16 PM EST) Pathologist [facility] [place] PCR, SARS CoV-2 RNA Not Detected Not Detected CEPHEID GENEXPERT 02/23/2025 5:04 PM EST [facility] Flu A RNA PCR Not Detected Not Detected CEPHEID GENEXPERT 02/23/2025 5:04 PM EST [facility] Flu B RNA PCR Not Detected Not Detected CEPHEID GENEXPERT 02/23/2025 5:04 PM EST [facility] RSV RNA PCR Not Detected Not Detected CEPHEID GENEXPERT 02/23/2025 5:04 PM EST [facility] Comment: Limitations: This RSV test [...] 4:16 PM EST 02/23/2025 4:21 PM EST Narrative [facility] - 02/23/2025 5:04 PM EST Methodology: The CepFriendshippr GeneXpert CoV-2/Flu/RSV plus assay is For Use Under an Emergency Use Authorization (EUA) Only with [employer]. The CoV-2/Flu/RSV plus assay is a [...] for treatment or other patient management decisions. us [facility] BODY FLUIDS AND STOOLS ORDERABLES Final Result [facility] [address] [place] [address], * (ABNORMAL) CBC Auto Differential (02/23/2025 4:16 PM EST) WBC 6.4 4.8 - 10.8 10*3/uL 02/23/2025 4:24 PM EST [facility] RBC 4.56(L) 4.70 - 6.10 10*6/uL 02/23/2025 4:24 PM EST [facility] Hemoglobin 13.8 13.7 - 16.5 g/dL 02/23/2025 4:24 PM EST [facility] Hematocrit 39.3(L) 40.5 - 48.5 % 02/23/2025 4:24 PM EST [facility] MCV 86.2 80.0 - 94.0 fL 02/23/2025 4:24 PM EST [facility] MCH 30.3 26.0 - 34.0 pg 02/23/2025 4:24 PM EST [facility] MCHC 35.1 31.0 - 36.0 g/dL 02/23/2025 4:24 PM EST [facility] RDW 12.4 12.0 - 15.0 % 02/23/2025 4:24 PM EST [facility] RDW Standard Deviation 39.6 35.1 - 43.9 fL 02/23/2025 4:24 PM EST [facility] Platelets 284 140 - 440 10*3/uL 02/23/2025 4:24 PM EST [facility] MPV 8.9(L) 9.4 - 12.4 fL 02/23/2025 4:24 PM [facility] Neutrophil % 54.9 50.0 - 75.0 % 02/23/2025 4:24 PM EST [facility] Immature Grans % 0.2 0.0 - 0.9 % 02/23/2025 4:24 PM [facility] Lymphocyte % 31.0 20.0 - 44.0 % 02/23/2025 4:24 PM [facility] Monocyte % 7.9 0.0 - 14.0 % 02/23/2025 4:24 PM [facility] Eosinophil % 4.7 0.0 - 5.0 % 02/23/2025 4:24 PM [facility] Basophil % 1.3 0.0 - 2.0 % 02/23/2025 4:24 PM [facility] Neutrophil # 3.50 1.80 - 7.70 10*3/uL 02/23/2025 4:24 PM EST [facility] Immature Grans # <0.03 0.00 - 0.03 10*3/uL 02/23/2025 4:24 PM [facility] Lymphocyte # 2.00 1.00 - 4.75 10*3/uL 02/23/2025 4:24 PM EST [facility] Monocyte # 0.50 0.00 - 0.60 10*3/uL 02/23/2025 4:24 PM EST [facility] Eosinophil # 0.30 0.00 - 0.80 10*3/uL 02/23/2025 4:24 PM EST [facility] Basophil # 0.10 0.00 - 0.20 10*3/uL 02/23/2025 4:24 PM EST [facility] nRBC % 0.0 0 - 0 /100 WBCs 02/23/2025 4:24 PM EST [facility] nRBC # <0.01 0.00 - 0.13 10*3/uL 02/23/2025 4:24 PM EST [facility] Blood Structure of peripheral vein / Unknown Venipuncture / Unknown 02/23/2025 4:16 PM EST 02/23/2025 4:21 PM EST [facility] BLOOD ORDERABLES Final Result Performing Organization Address [facility] Co de Phone Number [facility] [address] [place] [address], [place] [phone] * Lipase (02/23/2025 4:16 PM EST) Lipase 29 13 - 60 U/L 02/23/2025 4:47 PM EST [facility] Blood Structure of peripheral vein / Unknown Venipuncture / Unknown 02/23/2025 4:16 PM EST 02/23/2025 4:21 PM EST [facility] BLOOD ORDERABLES Final Result Performing Organization Address [facility] Co de Phone Number [facility] [address] [place] [address], [place] [phone] * Comprehensive Metabolic Panel (02/23/2025 4:16 PM EST) NA 139 136 - 145 mmol/L 02/23/2025 4:47 PM EST [facility] K 4.1 3.5 - 5.1 mmol/L 02/23/2025 4:47 PM EST [facility] Cl 103 97 - 110 mmol/L 02/23/2025 4:47 PM EST [facility] CO2 24 22 - 32 mmol/L 02/23/2025 4:47 PM EST [facility] Anion Gap 16 >=0 02/23/2025 4:47 PM EST [facility] Glucose 89 60 - 99 mg/dL 02/23/2025 4:47 PM [facility] Creatinine 0.97 0.50 - 1.12 mg/dL 02/23/2025 4:47 PM [facility] Calcium 9.7 8.4 - 10.4 mg/dL 02/23/2025 4:47 PM [facility] Total Protein 7.1 6.6 - 8.7 g/dL 02/23/2025 4:47 PM [facility] Albumin 4.7 3.5 - 5.0 g/dL 02/23/2025 4:47 PM [facility] Bilirubin, Total 0.5 0.2 - 1.2 mg/dL 02/23/2025 4:47 PM [facility] Alkaline Phosphatase 45 40 - 129 U/L 02/23/2025 4:47 PM [facility] AST 22 0 - 40 U/L 02/23/2025 4:47 PM [facility] ALT 16 <=41 U/L 02/23/2025 4:47 PM [facility] BUN 14 6 - 20 mg/dL 02/23/2025 4:47 PM [facility] eGFR >90 >=60 mL/min/1. 73m2 02/23/2025 4:47 PM [facility] Comment:The estimated glomer ular filtration [...] 2.1 - 4.2 g/dL 02/23/2025 4:47 PM [facility] A/G Ratio 2.0 1.5 - 3.0 02/23/2025 4:47 PM EST [facility] Blood Structure of peripheral vein / Unknown Venipuncture / Unknown 02/23/2025 4:16 PM EST 02/23/2025 4:21 PM EST us [facility] BLOOD ORDERABLES Final Result [facility] [address] [place] [address] [address] [place] [address], * X-Ray Chest 2 Views (02/23/2025 4:04 [...] to obtain the completed interpretation. Workstation ID: [id number] Narrative 02/23/2025 4:13 PM EST REASON FOR EXAM: Chest pain COMPARISON: None FINDINGS AND Resulting Agency Comment [id number] Procedure Note Yamil Ortega MD - 02/23/2025 [...] possible to obtain thecompleted interpretation. Workstation ID: [id number] us [facility] XR PROCEDURES Final Res ult * ECG 12 lead (02/23/2025 2:48 PM EST) Ventricular Rate EKG 69 BPM MUSE EKG Atrial Rate 69 BPM MUSE EKG SD Interval 158 ms MUSE EKG QRS Interval 90 ms MUSE EKG QT Interval 346 ms MUSE EKG QTC Interval 370 ms MUSE EKG P [place] 62 degrees MUSE EKG R [place] 97 degrees MUSE EKG T Wave [place] 42 degrees MUSE EKG 02/23/2025 2:48 PM EST 02/23/2025 5:14 PM EST Impressions MUSE EKG - 02/23/2025 5:14 PM EST Normal sinus rhythm with sinus arrhythmia Rightward axis Early repolarization Confirmed by Natali Gonzalez ([id number]) on 02/23/2025 5:14:19 PM Narrative Procedure Note Natali Gonzalez MD - 02/23/2025 IMPRESSION: Normal sinus rhythm with sinus arrhythmia Rightward axis Early repolarization Confirmed by Natali Gonzalez ([id number]) on 02/23/2025 5:14:19 PM us Manfred Amanda MD ECG ORDERABLES Final Result MUSE EKG from Last 3 Months Insurance [facility] Care Teams Software Asset Management Analyst Relationship Specialty Start Date End Date Luis Ryan PA [address] [place] [address] PCP - General 08/28/24
--- OUTSIDE RECORDS SUMMARY | 2025-02-28 16:34 | XMS_ITS | Clinical Summary ---
Author Organization [facility] Address [address] [place] [phone] Phone Care Team Providers Care Director Supply Name Role Phone RyanLuis Armani STACKER AND SORTER OPERATOR Primary Care Provider Allergies Active Allergy Reactions Criticality Noted Date Comments Insect Venom 02/14/2025 Fire ants Medications gabapentin (NEURONTIN) 100 MG capsule SMARTSI Capsule(s) By Mouth 3 Times Daily 01/04/2025 Active Active Problems Problem Noted Date Diagnosed Date Neck pain 02/14/2025 [place] syndrome 02/14/2025 TMJ arthralgia 02/14/2025 Encounters Date Type Department Care Team Description 02/28/[address] [facility] Otolaryngology [address] [place] [address] Kasi Murcia MD, DMD 02/21/2025 4:52 PM EST - 02/21/2025 11:59 PM EST Hospital Encounter [facility] CT Imaging, [place] [address] [place] [address] Kasi Murcia MD, DMD Discharge Disposition: Home or Self Care 02/14/2025 1:20 PM EDT Office Visit [facility] Otolaryngology [address] [place] [address] Kasi Murcia MD, DMD Neck pain (Primary Dx); [place] syndrome; Arthralgia of right temporomandibular joint 02/14/[address] [facility] CT Imaging, [place] [address] [place] [address] from Last 3 Months Social History Tobacco Use Types Packs/Day Years [...] Orientation Pansexual 01/04/2025 12 :10 PM EDT Last Filed Vital Signs Vital Sign Reading Time Taken Comments Blood Pressure 125/67 02/14/2025 1:17 PM EDT Pulse 65 02/14/2025 1:17 PM EDT Temperature - - Respiratory Rate - - Oxygen Saturation 98% 02/14/2025 1:17 PM EDT Inhaled Oxygen Concentration - - Weight - - Height - - Body Mass Index - - Plan of Treatment Health Maintenance Due Date Last Done Comments DEPRESSION SCREENING 2012 HPV VACCINES (2 - Male 3-dos e series) 01/15/2017 12/18/2016 HEPATITIS C SCREENING 02/08/2018 HIV ONE-TIME SCREENING (18-6 5 YEARS) 02/08/2018 INFLUENZA VACCINE (#1) 2024 12/18/2016 COVID-19 VACCINE ( - 2024-2 6 season) 2024 SMOKING Hx and SMOKELESS TOB ACCO SCREENING 02/14/2026 02/14/2025 Adult Td,Tdap Booster 09/06/2034 09/06/2024 MENINGOCOCCAL VACCINES (ACWY) Completed 12/18/2016 HEPATITIS A VACCINES Aged Out No long er eligible based on patient's age to complete this topic HIB VACCINES Aged Out No longer eligi ble based on patient's age to complete this topic IPV VACCINES Aged Out No longer eligi ble based on patient's age to complete this topic MENINGOCOCCAL VACCINES (B) Aged Out N o longer eligible based on patient's age to complete this topic PNEUMOCOCCAL VACCINES (0-49 years) Aged Out No longer eligible based on patient's age to complete this topic Medical Devices Not on file Procedures Procedure Name Priority Date/Time Associated Diagnosis Comments CT NECK SOFT TISSUE WITHOUT CONTRAST Routine 02/21/2025 5:38 PM EST Neck pain from Last 3 Months Results * CT NECK SOFT TISSUE WITHOUT CONTRAST (02/21/2025 5:38 PM EST) Anatomical Region Laterality Modality Neck Computed Tomogra phy 02/22/2025 9:15 AM EST Impressions 02/22/2025 9:48 AM EST 1. No suspicious masslike lesion or lymphadenopathy within the neck. 2. Mineralization of the bilateral, left greater than right, stylohyoid ligament. Narrative 02/22/2025 9:[address] NECK SOFT TISSUE WITHOUT CONTRAST Referring clinician's provided indication for this examination in Epic: * Neck pain, chronic, no prior imaging; ? eagles syndrome, pain greater on right TECHNIQUE: Multidetector-row CT of the neck was performed without intravenous contrast using tailored dose modulation techniques. Images were reconstructed in the axial, coronal, and sagittal planes. COMPARISON: None. FINDINGS: Aerodigestive Tract: The mucosa appears symmetrical. No suspicious masslike lesion. Lymph Nodes: There are no nodes meeting CT criteria for pathologic involvement. Salivary Glands: No obvious lesion is present. Thyroid Gland: The gland is homogenous in attenuation. Vessels: Expected postcontrast enhancement of the major cervical vessels. Paranasal Sinuses and Mastoids: Nonspecific mild scattered opacities of the paranasal sinuses. Brain and Orbits: No detectable abnormality is present in the imaged portions of the brain and orbits. Lung Apices: No abnormal opacity is present. Bones and Soft Tissues: No suspicious osseous lesions are present. There is mineralization of the bilateral, left greater than right, stylohyoid ligament, measuring approximately 3.8 cm on the left and 3.0 cm on the right. Procedure Note Griffin Brown MD, PhD - 02/22/2025 CT NECK SOFT TISSUE WITHOUT CONTRAST Referring clinician's provided indication for this examination in Epic: *Neck pain, chronic, no prior imaging; ? eagles syndrome, pain greater onright TECHNIQUE: Multidetector-row CT of the neck was performed withoutintravenous contrast using tailored dose modulation techniques. Imageswere reconstructed in the axial, coronal, and sagittal planes. COMPARISON: None. FINDINGS: Aerodigestive Tract: The mucosa appears symmetrical. No suspiciousmasslike lesion. Lymph Nodes: There are no nodes meeting CT criteria for pathologicinvolvement. Salivary Glands: No obvious lesion is present. Thyroid Gland: The gland is homogenous in attenuation. Vessels: Expected postcontrast enhancement of the major cervical vessels. Paranasal Sinuses and Mastoids: Nonspecific mild scattered opacities ofthe paranasal sinuses. Brain and Orbits: No detectable abnormality is present in the imagedportions of the brain and orbits. Lung Apices: No abnormal opacity is present. Bones and Soft Tissues: No suspicious osseous lesions are present. Thereis mineralization of the bilateral, left greater than right, stylohyoidligament, measuring approximately 3.8 cm on the left and 3.0 cm on theright. IMPRESSION: 1. No suspicious masslike lesion or lymphadenopathy within the neck. 2. Mineralization of the bilateral, left greater than right, stylohyoidligament. Kasi Murcia MD, DMD IMG CT XSPECIALTY ORDERA BLES Final Result from Last 3 Months Insurance [facility] [place] [phone] [facility] PL[facility] Care Teams Director Supply Relationship Specialty Start Date End Date Luis Ryan NP [address] [place] [address] [address] [place] [address] PCP - General Nurse Practitioner 01/04/25 Additional Source Comments The information contained in this document represents components of the legal health record. It is not the complete legal health record.[facility]
--- OUTSIDE RECORDS SUMMARY | 2025-02-28 16:34 | XMS_ITS | Clinical Summary ---
Author Organization [facility] Address [address] [facility] [place] [address] Care Team Providers Care Licensing Engineer Name Role Phone No, Pcp DIRECTOR OF PROCUREMENT Primary Care Provider Unavailabl e Allergies No [...] 11/08/2014 3:44 PM EDT Plan of Treatment Not on file Medical Devices Not on file Care Teams Licensing Engineer Relationship Specialty Start Date End Date No, Pcp, DIRECTOR OF PROCUREMENT N/A Do not use PCP - General 11/08/14
== END 2025-02-28 15:24 | disposition home or self-care (01) ==
LOC: HO.HMCH 14:13
DX: M26.621 Arthralgia of right temporomandibular joint (principal); G43.919 Migraine, unspecified, intractable, without status migrainosus; R20.2 Paresthesia of skin; M24.20 Disorder of ligament, unspecified site; F41.9 Anxiety disorder, unspecified; M54.31 Sciatica, right side

== ENCOUNTER 2025-03-07 14:52 | Outpatient (REF) | payer OTHER, SELFPAY ==
--- NOTE | ~2025-03-07 | XR_ITS ---
EXAMINATION: XR LUMBOSACRAL SPINE WITH OBLIQUES CLINICAL INFORMATION: M54.9 - Dorsalgia, unspecified COMPARISON: None available. TECHNIQUE: AP oblique and lateral views. FINDINGS: No acute cortical disruption or malalignment. No lytic or blastic lesions. XR/XR lumbar spine 4V min IMPRESSION: Normal lumbar spine exam. Electronically signed by: Thompson England MD 03/08/2025 07:29 AM [facility]
== END 2025-03-07 14:53 | disposition home or self-care (01) ==
LOC: HO.XRAY 14:52
PROVIDERS: Visit Provider Physician Assistant
DX: M54.16 Radiculopathy, lumbar region (principal); M54.12 Radiculopathy, cervical region; M25.811 Other specified joint disorders, right shoulder; M54.9 Dorsalgia, unspecified
CPT/HCPCS: 72110

== ENCOUNTER 2025-03-07 14:52 | Outpatient (AMB) | payer OTHER, SELFPAY ==
--- NOTE | 2025-03-07 14:59 | A.PHYSOV_ITS ---
Vital Signs 03/07/25 14:59 Height 5 ft 11 in Intake Visit Reasons: [facility] [place]- rt sided body pain Intake Note: Patient is a 25 year old male here for a new patient office visit. He is here for right sided pain and numbness. Patient states this involves his entire right side. This started in May 2024 and is getting worse. 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 Residential Sales Executive Required: No Allergies No Known Allergies Allergy (Verified 03/07/25 15:04) HPI Comments Details: History of Present Illness The patient is a 25-year-old male presenting with chronic right-sided pain. The pain began in May and initially presented as a sensation of the right side of the face shrinking, followed by back pain. The patient visited the emergency room and was diagnosed with sciatic pain, for which he underwent four months of physical therapy with minimal relief. The pain has progressively worsened, now affecting the right knee, hip, shoulder, and rib cage, with a sensation of asymmetry in mobility and sensation on the right side. The patient is currently on gabapentin 200 mg 3 times a day, which provides some relief without adverse effects. The patient has been evaluated for [place] syndrome, with calcified ligaments noted more on the left side than the right. An ENT specialist suggested the possibility of [place] syndrome, which was confirmed by the patient's doctor. A recent electromyogram indicated mild right peroneal sensory and motor neuropathy. We have x-ray of the cervical spine reported below. There is no x- ray of the lumbar spine. Patient has failed conservative treatment. I reviewed the referring provider's no prior consultation. Pain Description - Onset: Pain began in May - Quality: Sensation of right side shrinking, followed by back pain - Location: Right side of face, back, knee, hip, shoulder, rib cage - Radiation: Affects mobility and sensation on the right side - Exacerbating factors: Walking, standing, driving - Relieving factors: Gabapentin provides some relief Results - Imaging: X-ray of chest showed no significant abnormalities - Imaging: X-ray cervical spine 12/27/2024 normal. - Neurological: Electromyogram indicated mild right peroneal sensory and motor neuropathy - CT scan brain 08/28/2024 no intracranial hemorrhage or mass PFSH Medical History Anemia ADHD Surgical History History of wisdom tooth extraction Family History Other Diverticulosis Mental health disorder Substance use disorder Social History Housing: House Alcohol intake: never Patient Tobacco Use Status: Never used Tobacco e-Cigarette/Vaping Use: Never Used Second Hand Smoke Exposure: No Substance Use Type: Marijuana service: No Current occupational status: employed Current occupation: [employer] Cognitive needs: No Hearing needs: No Vision needs: No Review of Systems Narrative Review of Systems - Musculoskeletal: Reports right-sided pain affecting knee, hip, shoulder, rib cage - Neurological: Reports sensation of right side shrinking, asymmetry in mobility and sensation - Dental: Reports jaw pain, history of root canal and tooth extraction - General: Denies adverse effects from gabapentin Physical Exam Exam Exam: Physical Exam Cervical Spine: Examination of the cervical spine, no visible swelling or deformity. He is markedly tender with palpable spasm to the right upper trapezius. He has full range of motion of the cervical spine. Special Tests: Axial Compression test: Negative Spurlings test: Negative Lhermitte's sign is Negative Upper Extremities: Full range of motion bilateral upper extremities. Equal continuous drier helper strength bilaterally. Neer test. Negative empty can test. Full range of motion of his elbow equal continuous drier helper strength bilaterally. Neuro: Sensation: Intact to upper extremities bilateral to light touch Strength C5 (Elbow Flexion): 5/5 on the left and 5/5 on the right. C6 (Elbow Ext): 5/5 on the left and 5/5 on the right. C7 (Elbow Ext): 5/5 on the left and 5/5 on the right. C8 (Finger Flex): 5/5 on the left and 5/5 on the right. T1 (Finger Abd/Add): 5/5 on the left and 5/5 on the right. DTR: C5 (Biceps): Left 2 Right 2 C6 (Brachioradialis): Left 2 Right 2 C7 (Triceps): Left 2 Right 2 Siddiqi sign: Negative No pathologic clonus. No involuntary movement. Lumbar Spine: Examination of his lumbar spine, there is no visible swelling or deformity. He is tender to lower lumbar facets. Has full range of motion of the lumbar spine. He does have an increase in pain with facet loading. Special Tests: Lhermittes sign was negative Heel Toe walk is normal Left straight leg raise: Negative Right straight leg raise: Negative Special tests Jared test is negative Ganslen's test is negative SI Joint compression test negative Carmen test negative Piriformis stretch is negative Lower Extremities: Full range of motion bilateral lower extremities. No calf pain or edema. Neuro: Sensation: Intact to lower extremities bilaterally Strength L2 (Psoas): 5/5 on the left and 5/5 on the right. L3 (Quads): 5/5 on the left and 5/5 on the right. L4 (Ant tibialis): 5/5 on the left and 5/5 on the right. L5 (EHL) 5/5 on the left and 5/5 on the right. S1 (Gastroc): 5/5 on the left and 5/5 on the right. DTR L4: (Patellar) Left 2 Right 2 S1: (Achilles) Left 2 Right 2 Babinski Downgoing No pathologic clonus. No involuntary movement. Assessment & Plan Assessment & Plan (1) Lumbar radiculopathy: Code(s): M54.16 - Radiculopathy, lumbar region Category: Medical (2) Cervical radiculopathy: Code(s): M54.12 - Radiculopathy, cervical region Category: Medical (3) Impingement of right shoulder: Code(s): M25.811 - Other specified joint disorders, right shoulder Category: Medical Plan Pain Management - Affect: Pain impacts mobility and sensation on the right side - Analgesia: Gabapentin 600 mg daily, pain level 5-7/10 - Adverse Effects: No adverse effects reported from gabapentin - Activities of Daily Living: Pain affects walking, standing, driving - Aberrant Drug Related Behaviors: No aberrant behaviors reported Plan Patient was informed and verbally consented to the use of an ambient scribe for clinic note documentation during this visit. 1. Sciatic Pain The plan includes obtaining an MRI of the cervical and lumbar spine to assess for any disc bulges or pinched nerves that may be contributing to the sciatic pain. An x-ray of the back will also be ordered to facilitate MRI approval. Patient has failed conservative treatment for using anti-inflammatory medications as well as completing 3 months of physical therapy without relief. We discussed the benefits of proper nutrition and exercise to maintain a healthy body weight to improve longevity and function. We also discussed the benefits of proper lifting techniques, core strengthening and proper posture. Follow-up post MRI. 3. 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 Management will focus on addressing underlying causes and monitoring symptoms. Thank you for allowing me to participate in the care of your patient. Orders: Orders MR cervical spine wo con Today M54.12 - Radiculopathy, cervical region MR lumbar spine wo con Today M51.16 - Intervertebral disc disorders with radiculopathy, lumbar region XR lumbar spine 4V min Today M54.9 - Dorsalgia, unspecified Coding Level of Care Code Tele New Pt Level 4 (85459) Diagnoses Lumbar radiculopathy M54.16 Cervical radiculopathy M54.12 Impingement of right shoulder M25.811
== END 2025-03-07 15:47 | disposition home or self-care (01) ==
LOC: HO.HPHYS 14:53
PROVIDERS: Visit Provider Physician Assistant
DX: M54.16 Radiculopathy, lumbar region (principal); M54.12 Radiculopathy, cervical region; M25.811 Other specified joint disorders, right shoulder
CPT/HCPCS: 99204

== ENCOUNTER → 2025-03-07 15:55 | Outpatient (BNV) | payer OTHER, SELFPAY | PROVIDERS: Visit Provider Radiology Diagnostic Radiology | DX: M54.50 Low back pain, unspecified (principal) | CPT/HCPCS: 72110 ==

== ENCOUNTER 2025-03-14 12:29 | Outpatient (REF) | payer OTHER, SELFPAY ==
--- NOTE | 2025-03-14 12:34 | EEG_ITS ---
History: Left-handed 24-yr-old male presents for new patient evaluation of headache disorder. 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 Pt reports he has had worsening headaches since May 2024 without precipitating cause. He reports prior to the May 2024, he would have an occasional regular headache without photophobia, phonophobia, N/V. He then states in September or October, he experienced his 1st ever true migraine attack, where he required an ER eval. He had normal head CT w/wo and normal basic labs. He had a positive response to a migraine cocktail, which reduced the pain behind the right eye, but caused profound sleepiness. Medication: fluticasone propionate, gabapentin, magnesium glycinate, Vit B2 Technical Description Photic Stimulation: completed Hyperventilation: performed Behavioral State: pleasant State of Consciousness: awake Skull Defect: none Sedation: none Handedness: left Duration: 30 min 2 sec Lead Athlete Comments: Last Meal: 03/14/25 Time / date of last symptom: September or October 2024 Description: This is a 16 channel EEG with an EKG lead. Patient is reported awake during the tracing. Background EEG rhythm is slightly asymmetric with slightly slower rhythm noted in her left hemispheric leads than right. No definite sharp waves or spikes are noted. Photic stimulation does not produce any significant driving. Hyperventilation is unremarkable. Cardiac lead does not reveal any significant abnormality. Impression: No epileptic tendency is noted. Mild abnormality with slightly slower rhythm in left hemispheric leads that should be correlated with imaging. MTDD
== END 2025-03-14 12:30 | disposition home or self-care (01) ==
LOC: HO.NEURO 12:29
PROVIDERS: Visit Provider Nurse Practitioner Family
DX: R29.818 Other symptoms and signs involving the nervous system (principal); G43.919 Migraine, unspecified, intractable, without status migrainosus
CPT/HCPCS: 95816

== ENCOUNTER → 2025-03-14 12:34 | Outpatient (BNV) | payer OTHER, SELFPAY | PROVIDERS: Visit Provider Psychiatry & Neurology Neurology | DX: R43.1 Parosmia (principal) | CPT/HCPCS: 95816 ==

== ENCOUNTER → 2025-03-20 14:50 | Outpatient (BNV) | payer OTHER, SELFPAY | PROVIDERS: Visit Provider Radiology Diagnostic Radiology | DX: H53.131 Sudden visual loss, right eye (principal); R51.9 Headache, unspecified | CPT/HCPCS: 70544; 70553 ==

== ENCOUNTER 2025-03-20 15:00 | Outpatient (REF) | payer OTHER, SELFPAY ==
--- OUTSIDE RECORDS SUMMARY | 2025-03-18 16:10 | XMS_ITS | Encounter Summary ---
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) Social History Tobacco Use Types Packs/Day Years Used Date Smoking Tobacco: Never Passive Smoke Exposure: Never Smokeless Tobacco: Never Tobacco Cessation:Counseling Given: Yes PHQ-2 Answer Date Recorded PHQ-2 Total Score 0 03/18/2025 Sex and Gender Information Value Date Recorded Sex Assigned at Not on file Legal Sex Male 3:32 PM EDT Gender Identity Not on file Sexual Orientation Not on file documented as of this encounter Last Filed Vital Signs Vital Sign Reading Time Taken Comments Blood Pressure 118/76 03/18/2025 3:49 PM EST Pulse 80 03/18/2025 3:49 PM EST Temperature 37.1 C (98.7 F) 03/18/2025 3:49 PM EST Respiratory Rate 18 03/18/2025 3:49 PM EST Oxygen Saturation 97% 03/18/2025 3:49 PM EST Inhaled Oxygen Concentration - - Weight 65.8 kg (145 lb) 03/18/2025 3:49 PM EST Height 190.5 cm (6' 3 ) 03/18/2025 3:49 PM EST Body Mass Index 18.12 03/18/2025 3:49 PM EST documented in this encounter Functional Status * Is the person deaf or does he/she have serious difficulty hearing? Answer Date of Assessment Author * Is this person blind or does he/she have serious difficulty seeing even when wearing glasses? Answer Date of Assessment Author * Does this person have serious difficulty walking or climbing stairs? Answer Date of Assessment Author * Does this person have difficulty dressing or bathing? Answer Date of Assessment Author * Because of a physical, mental, or emotional condition, does this person have difficulty doing errands alone such as visiting a doctor's office or shopping? Answer Date of Assessment Author documented as of this encounter Mental Status * Because of a physical, mental, or emotional condition, does this person have serious difficulty concentrating, remembering, or making decisions? Answer Entry Date Author documented in this encounter Patient Instructions * Patient Instructions* Karie Sharp NP - 03/18/2025 4:10 PM EST You have been qualified for a period of two years. documented in this encounter Progress Notes * Karie Sharp NP - 03/18/2025 4:10 PM EST [facility] Visit Note Bakari Zepeda is a 25 y.o. male who presents with DOT Exam. History obtained from patient. 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 Subjective HPI Allergies[1] Review of Systems All other systems reviewed and are negative. Objective Vital Signs: BP 118/76 (Site: Left arm, Position: Sitting, Cuff Size: Adult) Pulse 80 Temp 98.7 ??F (37.1 ??C) (Tympanic) Resp 18 Ht 6' 3 (1.905 m) Wt 145 lb (65.8 kg) SpO2 97% BMI 18.12 kg/m?? Physical Exam Constitutional: General: He is not in acute distress. Appearance: Normal appearance. He is well-developed. HENT: Head: Normocephalic. Right Ear: Hearing, tympanic membrane, ear canal and external ear normal. Left Ear: Hearing, tympanic membrane, ear canal and external ear normal. Nose: Nose normal. Mouth/Throat: Lips: Hines. Mouth: Mucous membranes are moist. Pharynx: Oropharynx is clear. Eyes: General: Lids are normal. Extraocular Movements: Extraocular movements intact. Conjunctiva/sclera: Conjunctivae normal. Pupils: Pupils are equal, round, and reactive to light. Neck: Thyroid: No thyromegaly. Trachea: Trachea normal. Cardiovascular: Rate and Rhythm: Normal rate and regular rhythm. Chest Wall: PMI is not displaced. Pulses: Normal pulses. Heart sounds: Normal heart sounds, S1 normal and S2 normal. No murmur heard. Pulmonary: Effort: Pulmonary effort is normal. Breath sounds: Normal breath sounds. Abdominal: General: Bowel sounds are normal. Palpations: Abdomen is soft. There is no hepatomegaly. Tenderness: There is no abdominal tenderness. There is no right CVA tenderness or left CVA tenderness. Musculoskeletal: General: Normal range of motion. Cervical back: Full passive range of motion without pain, normal range of motion and neck supple. Lymphadenopathy: Cervical: No cervical adenopathy. Skin: General: Skin is warm and dry. Findings: No rash. Neurological: General: No focal deficit present. Mental Status: He is alert and oriented to person, place, and time. Sensory: Sensation is intact. Motor: Motor function is intact. Coordination: Coordination is intact. Romberg sign negative. Gait: Gait is intact. Deep Tendon Reflexes: Reflexes are normal and symmetric. Psychiatric: Attention and Perception: Attention and perception normal. Mood and Affect: Mood and affect normal. Speech: Speech normal. Behavior: Behavior normal. Behavior is cooperative. Thought Content: Thought content normal. Cognition and Memory: Cognition and memory normal. Judgment: Judgment normal. 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 Negative [facility] [id number] pH, UA 7.5 4.6 - 8.0 [facility] [id number] Protein, UA Negative [facility] [id number] Urobilinogen, UA Normal [facility] [id number] Nitrite, UA Negative [facility] [id number] Leukocytes, UA Negative CHARL TON [id number] INTERNAL CONTROLS VALID Yes--Test working appropriately [facility] [id number] Expiration Date 11/18/25 [facility] [id number] Lot Number [id number] [facility] [id number] TEST BRAND NAME _ UA Siemens [employer]istix 10SG [facility] [id number] Urine 03/18/2025 4:32 PM EST us Karie Sharp NP POINT OF CARE TEST ORDERABLE S Final Result [facility] [id number] [address] [place] [address] [place] [address], documented in this encounter Visit Diagnoses Diagnosis 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
--- NOTE | ~2025-03-20 | MR_ITS ---
EXAMINATION: MR ANGIOGRAPHY BRAIN WITHOUT CONTRAST CLINICAL INFORMATION: R 51.9. Headache, unspecified. COMPARISON: None available. TECHNIQUE: 3-D [id number]. Maximum intensity projections [place]. FINDINGS: Anterior cerebral circulation: ICAs: Normal flow signal. No flow signal gap or abrupt cut off. MCA's: Normal flow signal. No flow signal gap or abrupt cut off. Bifurcation/trifurcation demonstrated no flow signal abnormality. ACAs: Normal flow signal. No flow signal gap or abrupt cut off. Anterior communicating artery flow signal is present without gross abnormality. Ophthalmic arteries flow signal is present without vascular abnormality. Posterior communicating arteries flow signal is present without gross abnormality. Posterior cerebral circulation: V3/V4 segments flow signal is present without flow signal gap or intimal flap. Codominant vertebral arteries. Posterior inferior cerebellar arteries flow signal is present without vascular abnormality. Anterior inferior cerebral arteries flow signal is present without vascular abnormality. Basilar artery flow signal is present. No flow signal gap or abrupt cut off or intimal flap. Superior cerebellar arteries flow signal is present without abnormality. hairspring vibrator: Normal flow signal. No flow signal gap or abrupt cut off. MR/MR angio head wo con IMPRESSION: No main cerebral artery occlusion or embolus or gross aneurysm. Complete [place]. Normal MRA brain. Electronically signed by: Thompson England MD 03/21/2025 07:04 AM EST
--- NOTE | ~2025-03-20 | MR_ITS ---
EXAMINATION: MR BRAIN WITHOUT AND WITH CONTRAST CLINICAL INFORMATION: R 51.9. Headache, unspecified. Visual loss, right eye. COMPARISON: None available. TECHNIQUE: Multiplanar, multisequence MRI of the brain was obtained before and after the intravenous administration of 6.0 mL gadolinium based (Gadavist) without reported immediate complications.. FINDINGS: No restricted diffusion. No abnormal enhancement within the intra-axial or the extra-axial compartment of the cranium. No acute intracranial hemorrhage, mass effect, midline shift, hydrocephalus or herniation. Corcoran-white matter differentiation is normal. There are a few, scattered, nonspecific, punctate hyperintense T2 FLAIR signal within the subcortical white matter both frontal lobes. Flow-void signal within the main cerebral vessels is normal. Posterior cranial fossa contents demonstrated no signal abnormality or masses. Normal position of the cerebellar tonsils. Sellar/suprasellar region is normal. Mucosal thickening, paranasal sinuses. Prominent accessory parotid glands, bilaterally. MR/MR head/brain wo/w con IMPRESSION: No acute or structural brain abnormality. No abnormal enhancement. Nonspecific white matter T2 FLAIR signal which could be seen patients with migraines. Paranasal sinus disease, chronic. Electronically signed by: Thompson England MD 03/21/2025 07:09 AM ASTRID
--- OUTSIDE RECORDS SUMMARY | 2025-03-20 15:04 | XMS_ITS | Encounter Summary ---
Author Organization [facility] Address [address] [place] [address] [place] [phone] Phone Care Team Providers Care Poultry Processing Supervisor Name Role Phone Luis Ryan TIMBER INSPECTOR Primary Care Provider Encounter Details Date Type Department Care Team (Late st Contact Info) Description 02/14/2025 Procedure Pass [facility] CT Imaging, [place] [address] [place] [address] Social History Tobacco Use Types Packs/Day Years [...] as of this encounter Plan of Treatment Upcoming Encounters Date Type Department Care Team (Late st Contact Info) Description 05/16/2025 4:20 PM EST Office Visit [facility] Otolaryngology [address] [place] [address] Kasi Murcia MD, DMD [address] [place] [address] [email or web address] documented as of this encounter Visit Diagnoses Not on filedocumented in this encounter Care Teams Poultry Processing Supervisor Relationship Specialty Start Date End Date Luis Ryan NP [address] [place] [address] [address] [place] [id number] PCP - General Nurse Practitioner 01/04/25 documented as of this encounter Additional Source Comments The information contained in this document represents components of the legal health record. It is not the complete legal health record.[facility]
--- OUTSIDE RECORDS SUMMARY | 2025-03-20 15:04 | XMS_ITS | Clinical Summary ---
Author Organization [facility] Address [address] [place] [address] Care Team Providers Care Aquaculture Worker Name Role Phone Luis Ryan Primary Care Provider [phone] Allergies No known active allergies Medications gabapentin (NEURONTIN) 100 mg capsule SMARTSI Capsule(s) By Mouth 3 Times Daily 5 Active lidocaine (LIDODERM) 5% patch Apply 1 patch topically to the affected area once a day for 10 days. Remove and discard patch within 12 hours or as directed. 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 Short stature 11/29/2014 ADHD (attention deficit hyperactivity disorder) 11/29/2014 Bipolar I disorder, most recent episode depresse d 09/08/2014 Encounters Date Type Department Care Team Description 02/23/2025 2:57 PM EST - 02/23/2025 5:31 PM EST Emergency [facility] Emergency Department [address] [place] [id number] Chest pain, unspecified type (Primary Dx) Discharge Disposition: Home or Self Care () 01/19/2025 5:25 PM EDT - 01/19/2025 6:43 PM EDT Emergency [facility] Emergency Department [address] [place] [id number] Discharge Disposition: Left Without Being Seen (07) [...] Screening 04/21/2024 Influenza Vaccine (#1) 2024 12/18/2016 COVID-19 Vaccine (1 - season) 2024 DTaP,Tdap,and Td Vaccines (8 - Td or Tdap) 09/06/2034 09/06/2024, 11/16/2012, 11/06/2004, Additional history exists Hepatitis B Vaccines Completed 2000, 2000, 2000 Pneumococcal Vaccine: Pediatric (0-5 Years) and At-Risk Patients (6-50 Years) Aged Out 06/04/2001, 06/04/2001, 02/04/2001, Additional history exists No longer eligible based on patient's age to complete this topic Varicella Vaccines Completed 11/16/2012, 02/18/2002 Procedures * Due to [place] state law, this organization might not be [...] Last 3 Months Results * Due to [place] state law, this organization might not be sharing negative HIV tests. * Troponin T, High Sensitivity (02/23/2025 4:16 PM EST) Pathologist [facility] Troponin T High Sensitivity 6 6 - 22 ng/L 02/23/2025 4:47 PM EST [facility] Comment: Cr-Ietmnikw-Q level of 52 ng/L or higher at [...] be evaluated in line with the 4th Guild Definition of AMI. Troponin baseline and serial [...] Bry [facility] BLOOD ORDERABLES Final Result [facility] [address] [place] [address], * Rapid COVID-19, FLU A, FLU B & RSV RNA PCR, Symptomatic (ED ONLY) (02/23/2025 4:16 PM EST) [facility] PCR, SARS CoV-2 RNA Not Detected Not Detected CEPHEID GENEXPERT 02/23/2025 5:04 PM EST [facility] Flu A RNA PCR Not Detected Not Detected CEPHEID GENEXPERT 02/23/2025 5:04 PM EST [facility] Flu B RNA PCR Not Detected Not Detected CEPHEID GENEXPERT 02/23/2025 5:04 PM EST [facility] RSV RNA PCR Not Detected Not Detected CEPHEID GENEXPERT 02/23/2025 5:04 PM EST [facility] Comment: Limitations: This RSV test is [...] 4:16 PM EST 02/23/2025 4:21 PM EST [facility] - 02/23/2025 5:04 PM EST Methodology: The Autoniq GeneXpert CoV-2/Flu/RSV plus assay is For Use Under an Emergency Use Authorization (EUA) Only with [employer]. The CoV-2/Flu/RSV plus assay is a [...] BODY FLUIDS AND STOOLS ORDERABLES Final Result [facility] [address] [facility] [address] [place] [address], * (ABNORMAL) CBC Auto Differential (02/23/2025 4:16 PM EST) Pathologist [facility] WBC 6.4 4.8 - 10.8 10*3/uL 02/23/2025 4:24 PM EST [facility] RBC 4.56(L) 4.70 - 6.10 10*6/uL 02/23/2025 4:24 PM EST [facility] Hemoglobin 13.8 13.7 - 16.5 g/dL 02/23/2025 4:24 PM EST [facility] Hematocrit 39.3(L) 40.5 - 48.5 % 02/23/2025 4:24 PM EST [facility] MCV 86.2 80.0 - 94.0 fL 02/23/2025 4:24 PM EST [facility] MCH 30.3 26.0 - 34.0 pg 02/23/2025 4:24 PM EST [facility] MCHC 35.1 31.0 - 36.0 g/dL 02/23/2025 4:24 PM EST [facility] RDW 12.4 12.0 - 15.0 % 02/23/2025 4:24 PM EST [facility] RDW Standard Deviation 39.6 35.1 - 43.9 fL 02/23/2025 4:24 PM EST [facility] Platelets 284 140 - 440 10*3/uL 02/23/2025 4:24 PM EST [facility] MPV 8.9(L) 9.4 - 12.4 fL 02/23/2025 4:24 PM EST [facility] Neutrophil % 54.9 50.0 - 75.0 % 02/23/2025 4:24 PM EST [facility] Immature Grans % 0.2 0.0 - 0.9 % 02/23/2025 4:24 PM EST [facility] Lymphocyte % 31.0 20.0 - 44.0 % 02/23/2025 4:24 PM EST [facility] Monocyte % 7.9 0.0 - 14.0 % 02/23/2025 4:24 PM EST [facility] Eosinophil % 4.7 0.0 - 5.0 % 02/23/2025 4:24 PM EST [facility] Basophil % 1.3 0.0 - 2.0 % 02/23/2025 4:24 PM EST [facility] Neutrophil # 3.50 1.80 - 7.70 10*3/uL 02/23/2025 4:24 PM EST [facility] Immature Grans # <0.03 0.00 - 0.03 10*3/uL 02/23/2025 4:24 PM EST [facility] Lymphocyte # 2.00 1.00 - 4.75 10*3/uL 02/23/2025 4:24 PM EST [facility] Monocyte # 0.50 0.00 - 0.60 10*3/uL 02/23/2025 4:24 PM EST [facility] Eosinophil # 0.30 0.00 - 0.80 10*3/uL 02/23/2025 4:24 PM EST [facility] Basophil # 0.10 0.00 - 0.20 10*3/uL 02/23/2025 4:24 PM EST [facility] nRBC % 0.0 0 - 0 /100 WBCs 02/23/2025 4:24 PM EST [facility] nRBC # <0.01 0.00 - 0.13 10*3/uL 02/23/2025 4:24 PM EST [facility] Blood Structure of peripheral vein / Unknown Venipuncture / Unknown 02/23/2025 4:16 PM EST 02/23/2025 4:21 PM EST us Bry [facility] BLOOD ORDERABLES Final Result [facility] [address] [address], * Lipase (02/23/2025 4:16 PM EST) Lipase 29 13 - 60 U/L 02/23/2025 4:47 PM EST [facility] Blood Structure of peripheral vein / Unknown Venipuncture / Unknown 02/23/2025 4:16 PM EST 02/23/2025 4:21 PM EST [facility] BLOOD ORDERABLES Final Result [facility] [address] [place] [id number], * Comprehensive Metabolic Panel (02/23/2025 4:16 PM EST) NA 139 136 - 145 mmol/L 02/23/2025 4:47 PM EST [facility] K 4.1 3.5 - 5.1 mmol/L 02/23/2025 4:47 PM EST [facility] Cl 103 97 - 110 mmol/L 02/23/2025 4:47 PM EST [facility] CO2 24 22 - 32 mmol/L 02/23/2025 4:47 PM EST [facility] Anion Gap 16 >=0 02/23/2025 4:47 PM EST [facility] Glucose 89 60 - 99 mg/dL 02/23/2025 4:47 PM EST [facility] Creatinine 0.97 0.50 - 1.12 mg/dL 02/23/2025 4:47 PM EST [facility] Calcium 9.7 8.4 - 10.4 mg/dL 02/23/2025 4:47 PM EST [facility] Total Protein 7.1 6.6 - 8.7 g/dL 02/23/2025 4:47 PM EST [facility] Albumin 4.7 3.5 - 5.0 g/dL 02/23/2025 4:47 PM EST [facility] Bilirubin, Total 0.5 0.2 - 1.2 mg/dL 02/23/2025 4:47 PM EST [facility] Alkaline Phosphatase 45 40 - 129 U/L 02/23/2025 4:47 PM EST [facility] AST 22 0 - 40 U/L 02/23/2025 4:47 PM EST [facility] ALT 16 <=41 U/L 02/23/2025 4:47 PM EST [facility] BUN 14 6 - 20 mg/dL 02/23/2025 4:47 PM EST [facility] eGFR >90 >=60 mL/min/1. 73m2 02/23/2025 4:47 PM EST [facility] Comment:The estimated glomer ular filtration [...] - 4.2 g/dL 02/23/2025 4:47 PM EST [facility] A/G Ratio 2.0 1.5 - 3.0 02/23/2025 4:47 PM EST [facility] Blood Structure of peripheral vein / Unknown Venipuncture / Unknown 02/23/2025 4:16 PM EST 02/23/2025 4:21 PM EST [facility] BLOOD ORDERABLES Final Result [facility] [address] [facility] [address] [place] [address], * X-Ray Chest 2 Views (02/23/2025 4:04 [...] to obtain the completed interpretation. Workstation ID: [id number] Narrative 02/23/2025 4:13 PM EST REASON FOR EXAM: Chest pain COMPARISON: None FINDINGS AND Resulting Agency Comment [id number] Procedure Note Yamil Ortega MD - 02/23/2025 [...] possible to obtain thecompleted interpretation. Workstation ID: [id number] us Bry [facility] IMG XR PROCEDURES Final Res ult * ECG 12 lead (02/23/2025 2:48 PM EST) Ventricular Rate EKG 69 BPM MUSE EKG Atrial Rate 69 BPM MUSE EKG AZ Interval 158 ms MUSE EKG QRS Interval 90 ms MUSE EKG QT Interval 346 ms MUSE EKG QTC Interval 370 ms MUSE EKG P Fellows 62 degrees MUSE EKG R Fellows 97 degrees MUSE EKG T Wave Fellows 42 degrees MUSE EKG 02/23/2025 2:48 PM EST 02/23/2025 5:14 PM EST Impressions MUSE EKG - 02/23/2025 5:14 PM EST Normal sinus rhythm with sinus arrhythmia Rightward axis Early repolarization Confirmed by Natali Gonzalez ([id number]) on 02/23/2025 5:14:19 PM Narrative Procedure Note Natali Gonzalez MD - 02/23/2025 IMPRESSION: Normal sinus rhythm with sinus arrhythmia Rightward axis Early repolarization Confirmed by Natali Gonzalez ([id number]) on 02/23/2025 5:14:19 PM us Manfred Amanda MD ECG ORDERABLES Final Result MUSE EKG from Last 3 Months Insurance [facility] Care Teams Aquaculture Worker Relationship Specialty Start Date End Date Luis Ryan PA [address] [place] [address] PCP - General 08/28/24
--- OUTSIDE RECORDS SUMMARY | 2025-03-20 15:04 | XMS_ITS | Clinical Summary ---
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 02/14/2025 Encounters Date Type Department Care Team Description 03/03/2025 Telephone [facility] Otolaryngology [address] [place] [phone] Erica Boyer NP 02/28/2025 Telephone [facility] Otolaryngology [address] [place] [phone] Kasi Murcia MD, DMD 02/21/2025 4:52 PM EST - 02/21/2025 11:59 PM EST Hospital Encounter [facility], [place] [address] [place] [address] Kasi Murcia MD, DMD Discharge Disposition: Home or Self Care 02/14/2025 1:20 PM EDT Office Visit [facility] Otolaryngology [address] [place] [address] [place] [address] Kasi Murcia MD, DMD Neck pain (Primary Dx); Samish syndrome; Arthralgia of right temporomandibular joint 02/14/2025 Procedure Pass [facility], [place] [address] [place] [address] from Last 3 Months Social History Tobacco [...] Mass Index - - Plan of Treatment Upcoming Encounters Date Type Department Care Team (Late st Contact Info) Description 05/16/2025 4:20 PM EST Office Visit [facility] Otolaryngology [address] [place] [address] [place] [phone] Kasi Murcia MD, DMD [address] [place] [phone] [email or web address] Health Maintenance Due Date Last Done Comments DEPRESSION SCREENING 2012 HPV VACCINES (2 - Male 3-dos e series) 01/15/2017 12/18/2016 HEPATITIS C SCREENING 02/08/2018 HIV ONE-TIME SCREENING (18-6 5 YEARS) 02/08/2018 INFLUENZA VACCINE (#1) 2024 12/18/2016 COVID-19 VACCINE (2024-2 6 season) 2024 SMOKING Hx and SMOKELESS [...] clinician's provided indication for this examination in [facility]: *Neck pain, chronic, no prior imaging; ? [...] Final Result from Last 3 Months Insurance [facility] PLAN [facility] PLAN [facility] PLAN [facility] PLAN [facility] PLAN Care Teams Oil Pipe Inspector Helper Relationship Specialty Start Date End Date Luis Ryan NP [address] [place] [address] [address] [place] [address] PCP - General Nurse Practitioner 01/04/25 Additional Source Comments The information contained in this document represents components of the legal health record. It is not the complete legal health record.[facility]
--- OUTSIDE RECORDS SUMMARY | 2025-03-20 15:04 | XMS_ITS | Clinical Summary ---
Author Organization [employer] [facility] Address [address] [place] [address] Care Team Providers Care Packer Sausage And Wiener Name Role Phone Pcp, No Primary Care Provider [phone] Allergies No known active allergies Medications gabapentin (NEURONTIN) 100 MG capsule SMARTSI Capsule(s) By Mouth 3 Times Daily 5 Active VYVANSE 40 mg capsule 0 5 03/18/20 25 Discontinued QUEtiapine (SEROquel) 100 MG tablet 0 5 03/18/20 25 Discontinued sertraline (ZOLOFT) 50 MG tablet 0 5 03/18/20 25 Discontinued divalproex (DEPAKOTE) 250 MG EC tablet 0 5 03/18/20 25 Discontinued Encounters Date Type Department Care Team Description 03/18/2025 4:10 PM EST Office Visit [facility] [address] [place] [address] Karie Sharp, HIREN 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 Last 3 Months Social History Tobacco [...] Mass Index 18.12 03/18/2025 3:49 PM EST Plan of Treatment Health Maintenance Due Date Last Done Comments Hepatitis C Virus Infection in Adolescents and Adults: Screening (or Modifier) ([facility] ) 02/08/2018 SDOH Screening Reminder: Annually for all adults ([facility]) 02/08/2018 DTaP/Tdap/Td Vaccines ([facility]) (7 - Td or Tdap) 11/16/2022 11/16/2012, 11/06/2004, 06/04/2001, Additional history exists Flu Vaccination: Yearly for ages 18mos through 64 years (or Modifier)([facility]) 11/19/2024 COVID-19 Vaccine Screening: Initial Series and Booster Status ([facility]) ( - 2024- season) 2024 Depression: Screening Annually using PHQ-2/9 in Adults 18 yrs or above (or HM Modifier)([facility]) 03/18/2026 03/18/2025 Zoster/Shingles Vaccine Series Screening: Adults aged 18+ yrs (or HM Modifiers)([facility]) (1 of 2) 02/08/2050 11/16/2012, 02/18/2002 Pneumococcal Vaccination Screening: Pts 0-19 & 19-49 yrs of age ([facility]) Aged Out 06/04/2001, 02/04/2001, 2000 No longer eligible based on patient's age to complete this topic Medical Devices Not on file Procedures Procedure Name Priority Date/Time Associated Diagnosis Comments POCT URINALYSIS DIPSTICK Routine 03/18/2025 4:32 PM EST 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 Negative [facility] [id number] pH, UA 7.5 4.6 - 8.0 [facility] [id number] Protein, UA Negative [facility] [id number] Urobilinogen, UA Normal [facility] [id number] Nitrite, UA Negative [facility] [id number] Leukocytes, UA Negative CHARL [place]ON [id number] INTERNAL CONTROLS VALID Yes--Test working appropriately [facility] [id number] Expiration Date 11/18/25 [facility] [id number] Lot Number [id number] [facility] [id number] TEST BRAND NAME _ UA Siemens Multistix 10SG [facility] [id number] Urine 03/18/2025 4:32 PM EST us Karie Sharp NP POINT OF CARE TEST ORDERABLE S Final Result [facility] [id number] [address] [facility] [place] [id number], [place] from Last 3 Months Care Teams Packer Sausage And Wiener Relationship Specialty Start Date End Date Pcp, No PCP - General Family Medicine 03/18/25
== END 2025-03-20 15:01 | disposition home or self-care (01) ==
LOC: HO.MRI 15:00
PROVIDERS: Visit Provider Nurse Practitioner Family
DX: Q67.0 Congenital facial asymmetry (principal); H53.131 Sudden visual loss, right eye; R51.9 Headache, unspecified
CPT/HCPCS: 70544; 70553; A9585